=== PATIENT | male | born 1965 | race African-American/Black ===

== ENCOUNTER 2021-01-07 20:14 | Inpatient (IN) | payer OTHER ==
[2021-01-07 21:13] VITALS: BMI 26.6
[2021-01-07] MEDS ORDERED: MAGNESIUM CITRATE 300 ML BOTTLE PO PRN (22:18)
[2021-01-07] MEDS ORDERED: ACETAMINOPHEN 325 MG TABLET (FP) PO PRN (22:18)
[2021-01-07] MEDS ORDERED: LOPERAMIDE HCL 2 MG CAPSULE PO PRN (22:18)
[2021-01-07] MEDS ORDERED: P-EPHED 60MG/TRIPROLIDI 2.5MG TABLET PO PRN (22:18)
[2021-01-07] MEDS ORDERED: guaiFENesin 200 MG/10 ML 10 ML UNIT-DOSE CUPS PO PRN (22:18)
[2021-01-07] MEDS ORDERED: MAGNESIUM HYDROX 2400MG/30ML ORAL SUSPENSION 30 ML CUP PO PRN (22:18)
[2021-01-07] MEDS ORDERED: IBUPROFEN 400 MG TABLET (FP) PO PRN (22:18)
[2021-01-07] MEDS ORDERED: MAG HYDROX/AL HYDROX/SIMETH 30 ML UNIT-DOSE CUP PO PRN (22:18)
[2021-01-08] MEDS ORDERED: TUBERCULIN PPD 5 TU/0.1ML VIAL ID ONE (02:06)
[2021-01-08] MEDS: MELATONIN 5 MG TABLETS PO SCH ×2 (02:15→21:14)
[2021-01-08] MEDS: PRENATAL VITAMINS W/ FOLIC ACID TABLET (FP) PO SCH (10:29)
[2021-01-08 11:53] LABS: HEMATOCRIT 39.5 % (35.4-49); HEMOGLOBIN 13.4 GM/dL (11.7-16.9); MCH 30.1 pg (25.7-33.7); MEAN CELL VOLUME 88.5 fl (80-96); MEAN PLT VOLUME 8.2 fl (7.5-11.1); PLATELET COUNT 193 10^3/uL (134-434); RBC 4.47 M/mm3 (4.00-5.60); RDW 15.6 % (11.9-15.9); WHITE BLOOD COUNT 7.1 K/mm3 (4.0-10.0)
[2021-01-08] MEDS ORDERED: FLU VACC QS2021-22(6MOS UP)/PF 60 MCG/0.5 ML SYRINGE IM ONE (12:00)
[2021-01-08 12:37] LABS: BLOOD UREA NITROGEN 13.4 mg/dL (7-18)
[2021-01-08 12:41] LABS: CREATININE 0.9 mg/dL (0.55-1.3)
[2021-01-08 12:42] LABS: BILIRUBIN,TOTAL 0.5 mg/dL (0.2-1); TOT PROT 6.2 g/dl (6.4-8.2)
[2021-01-08] MEDS: THIAMINE HCL 100 MG TABLET (FP) PO SCH (21:14)
[2021-01-08 22:51] LABS: PH,URINE 7.5 (5.0-8.0); URINE APPEARANCE CLEAR; URINE BILIRUBIN NEGATIVE (NEGATIVE); URINE COLOR YELLOW; URINE GLUCOSE (UA) NEGATIVE (NEGATIVE); URINE KETONE NEGATIVE (NEGATIVE); URINE LEUK ESTERASE NEGATIVE (NEGATIVE); URINE NITRITE NEGATIVE (NEGATIVE); URINE PROTEIN NEGATIVE (NEGATIVE)
[2021-01-09] MEDS: PRENATAL VITAMINS W/ FOLIC ACID TABLET (FP) PO SCH (10:28)
[2021-01-09] MEDS: TOLNAFTATE 1% CREAM 15 GM TUBE TP SCH ×2 (10:28→22:36)
[2021-01-09] MEDS ORDERED: CYCLOBENZAPRINE HCL 10 MG TABLET (FP) PO PRN (12:17)
[2021-01-09] MEDS: HYDROCHLOROTHIAZIDE 12.5 MG CAPSULE (FP) PO SCH (13:50)
[2021-01-09] MEDS: amLODIPine BESYLATE 5 MG TABLET (FP) PO SCH (13:50)
[2021-01-09] MEDS: LISINOPRIL 10 MG TABLET PO SCH (13:51)
[2021-01-09] MEDS: MELATONIN 5 MG TABLETS PO SCH (22:35)
[2021-01-09] MEDS: THIAMINE HCL 100 MG TABLET (FP) PO SCH (22:36)
[2021-01-10] MEDS: PRENATAL VITAMINS W/ FOLIC ACID TABLET (FP) PO SCH (10:49)
[2021-01-10] MEDS: HYDROCHLOROTHIAZIDE 12.5 MG CAPSULE (FP) PO SCH (10:50)
[2021-01-10] MEDS: LISINOPRIL 10 MG TABLET PO SCH (10:51)
[2021-01-10] MEDS: amLODIPine BESYLATE 5 MG TABLET (FP) PO SCH (10:51)
[2021-01-10] MEDS: TOLNAFTATE 1% CREAM 15 GM TUBE TP SCH ×2 (10:52→22:00)
[2021-01-10] MEDS: THIAMINE HCL 100 MG TABLET (FP) PO SCH (22:00)
[2021-01-10] MEDS: MELATONIN 5 MG TABLETS PO SCH (22:00)
[2021-01-11] MEDS: PRENATAL VITAMINS W/ FOLIC ACID TABLET (FP) PO SCH (10:15)
[2021-01-11] MEDS: HYDROCHLOROTHIAZIDE 12.5 MG CAPSULE (FP) PO SCH (10:15)
[2021-01-11] MEDS: amLODIPine BESYLATE 5 MG TABLET (FP) PO SCH (10:15)
[2021-01-11] MEDS: LISINOPRIL 10 MG TABLET PO SCH (10:15)
[2021-01-11] MEDS: TOLNAFTATE 1% CREAM 15 GM TUBE TP SCH ×2 (10:15→23:04)
[2021-01-11] MEDS: THIAMINE HCL 100 MG TABLET (FP) PO SCH (23:04)
[2021-01-11] MEDS: MELATONIN 5 MG TABLETS PO SCH (23:04)
[2021-01-12] MEDS: HYDROCHLOROTHIAZIDE 12.5 MG CAPSULE (FP) PO SCH (12:09)
[2021-01-12] MEDS: amLODIPine BESYLATE 5 MG TABLET (FP) PO SCH (12:09)
[2021-01-12] MEDS: PRENATAL VITAMINS W/ FOLIC ACID TABLET (FP) PO SCH (12:09)
[2021-01-12] MEDS: TOLNAFTATE 1% CREAM 15 GM TUBE TP SCH ×2 (12:09→21:54)
[2021-01-12] MEDS: LISINOPRIL 10 MG TABLET PO SCH (12:09)
[2021-01-12] MEDS: MELATONIN 5 MG TABLETS PO SCH (21:54)
[2021-01-12] MEDS: THIAMINE HCL 100 MG TABLET (FP) PO SCH (21:54)
[2021-01-13] MEDS: LISINOPRIL 10 MG TABLET PO SCH (09:55)
[2021-01-13] MEDS: HYDROCHLOROTHIAZIDE 12.5 MG CAPSULE (FP) PO SCH (09:55)
[2021-01-13] MEDS: PRENATAL VITAMINS W/ FOLIC ACID TABLET (FP) PO SCH (09:55)
[2021-01-13] MEDS: amLODIPine BESYLATE 5 MG TABLET (FP) PO SCH (09:55)
[2021-01-13] MEDS: TOLNAFTATE 1% CREAM 15 GM TUBE TP SCH (09:56)
[2021-01-13] MEDS ORDERED: TOLNAFTATE 1% POWDER 45 GM POW TP SCH (11:00)
[2021-01-13 16:08] LABS: SARS-CoV-2 NAA Not Detected (Not Detected)
[2021-01-13] MEDS: THIAMINE HCL 100 MG TABLET (FP) PO SCH (21:06)
[2021-01-13] MEDS: MELATONIN 5 MG TABLETS PO SCH (21:06)
[2021-01-13] MEDS: TOLNAFTATE 1% POWDER 45 GM POW TP SCH (22:30)
[2021-01-14] MEDS: HYDROCHLOROTHIAZIDE 12.5 MG CAPSULE (FP) PO SCH (09:47)
[2021-01-14] MEDS: amLODIPine BESYLATE 5 MG TABLET (FP) PO SCH (09:47)
[2021-01-14] MEDS: LISINOPRIL 10 MG TABLET PO SCH (09:48)
[2021-01-14] MEDS: PRENATAL VITAMINS W/ FOLIC ACID TABLET (FP) PO SCH (09:48)
[2021-01-14] MEDS: MELATONIN 5 MG TABLETS PO SCH (23:08)
[2021-01-14] MEDS: TOLNAFTATE 1% CREAM 15 GM TUBE TP SCH (23:08)
[2021-01-14] MEDS: THIAMINE HCL 100 MG TABLET (FP) PO SCH (23:10)
[2021-01-15] MEDS: TOLNAFTATE 1% POWDER 45 GM POW TP SCH (02:04)
[2021-01-15] MEDS: PRENATAL VITAMINS W/ FOLIC ACID TABLET (FP) PO SCH (10:21)
[2021-01-15] MEDS: amLODIPine BESYLATE 5 MG TABLET (FP) PO SCH (10:22)
[2021-01-15] MEDS: LISINOPRIL 10 MG TABLET PO SCH (10:22)
[2021-01-15] MEDS: TOLNAFTATE 1% CREAM 15 GM TUBE TP SCH ×2 (10:22→21:54)
[2021-01-15] MEDS: HYDROCHLOROTHIAZIDE 12.5 MG CAPSULE (FP) PO SCH (10:22)
[2021-01-15] MEDS: MELATONIN 5 MG TABLETS PO SCH (21:53)
[2021-01-15] MEDS: THIAMINE HCL 100 MG TABLET (FP) PO SCH (21:54)
[2021-01-16] MEDS: PRENATAL VITAMINS W/ FOLIC ACID TABLET (FP) PO SCH (09:34)
[2021-01-16] MEDS: amLODIPine BESYLATE 5 MG TABLET (FP) PO SCH (09:34)
[2021-01-16] MEDS: LISINOPRIL 10 MG TABLET PO SCH (09:34)
[2021-01-16] MEDS: TOLNAFTATE 1% CREAM 15 GM TUBE TP SCH ×2 (09:34→22:41)
[2021-01-16] MEDS: HYDROCHLOROTHIAZIDE 12.5 MG CAPSULE (FP) PO SCH (09:34)
[2021-01-16] MEDS: MELATONIN 5 MG TABLETS PO SCH (22:41)
[2021-01-16] MEDS: THIAMINE HCL 100 MG TABLET (FP) PO SCH (22:41)
[2021-01-17] MEDS: PRENATAL VITAMINS W/ FOLIC ACID TABLET (FP) PO SCH (10:29)
[2021-01-17] MEDS: LISINOPRIL 10 MG TABLET PO SCH (10:29)
[2021-01-17] MEDS: amLODIPine BESYLATE 5 MG TABLET (FP) PO SCH (10:29)
[2021-01-17] MEDS: HYDROCHLOROTHIAZIDE 12.5 MG CAPSULE (FP) PO SCH (10:29)
[2021-01-17] MEDS: TOLNAFTATE 1% CREAM 15 GM TUBE TP SCH ×2 (10:41→22:32)
[2021-01-17] MEDS: MELATONIN 5 MG TABLETS PO SCH (22:32)
[2021-01-17] MEDS: THIAMINE HCL 100 MG TABLET (FP) PO SCH (22:33)
[2021-01-18] MEDS: amLODIPine BESYLATE 5 MG TABLET (FP) PO SCH (09:43)
[2021-01-18] MEDS: HYDROCHLOROTHIAZIDE 12.5 MG CAPSULE (FP) PO SCH (09:43)
[2021-01-18] MEDS: LISINOPRIL 10 MG TABLET PO SCH (09:43)
[2021-01-18] MEDS: PRENATAL VITAMINS W/ FOLIC ACID TABLET (FP) PO SCH (09:43)
[2021-01-18] MEDS: TOLNAFTATE 1% CREAM 15 GM TUBE TP SCH ×2 (09:44→22:11)
[2021-01-18] MEDS: THIAMINE HCL 100 MG TABLET (FP) PO SCH (22:11)
[2021-01-18] MEDS: MELATONIN 5 MG TABLETS PO SCH (22:11)
[2021-01-19] MEDS: HYDROCHLOROTHIAZIDE 12.5 MG CAPSULE (FP) PO SCH (09:26)
[2021-01-19] MEDS: amLODIPine BESYLATE 5 MG TABLET (FP) PO SCH (09:26)
[2021-01-19] MEDS: LISINOPRIL 10 MG TABLET PO SCH (09:26)
[2021-01-19] MEDS: PRENATAL VITAMINS W/ FOLIC ACID TABLET (FP) PO SCH (09:26)
[2021-01-19] MEDS: TOLNAFTATE 1% CREAM 15 GM TUBE TP SCH ×2 (09:27→21:47)
[2021-01-19] MEDS: MELATONIN 5 MG TABLETS PO SCH (21:47)
[2021-01-19] MEDS: THIAMINE HCL 100 MG TABLET (FP) PO SCH (21:48)
[2021-01-20] MEDS: HYDROCHLOROTHIAZIDE 12.5 MG CAPSULE (FP) PO SCH (09:32)
[2021-01-20] MEDS: PRENATAL VITAMINS W/ FOLIC ACID TABLET (FP) PO SCH (09:32)
[2021-01-20] MEDS: amLODIPine BESYLATE 5 MG TABLET (FP) PO SCH (09:33)
[2021-01-20] MEDS: TOLNAFTATE 1% CREAM 15 GM TUBE TP SCH ×2 (09:33→22:00)
[2021-01-20] MEDS: LISINOPRIL 10 MG TABLET PO SCH (09:33)
[2021-01-20] MEDS: MELATONIN 5 MG TABLETS PO SCH (22:00)
[2021-01-20] MEDS: THIAMINE HCL 100 MG TABLET (FP) PO SCH (22:00)
[2021-01-21 06:51] VITALS: TEMP 98.6
[2021-01-21 09:23] VITALS: BP 143/63; PULSE 53
[2021-01-21] MEDS: PRENATAL VITAMINS W/ FOLIC ACID TABLET (FP) PO SCH (09:30)
[2021-01-21] MEDS: LISINOPRIL 10 MG TABLET PO SCH (09:30)
[2021-01-21] MEDS: amLODIPine BESYLATE 5 MG TABLET (FP) PO SCH (09:30)
[2021-01-21] MEDS: HYDROCHLOROTHIAZIDE 12.5 MG CAPSULE (FP) PO SCH (09:30)
== END 2021-01-21 09:42 | disposition home or self-care (01) | DRG 772 ==
LOC: YASAS 20:14 → Y3W 01-08 01:31
PROVIDERS: ADMIT Allergy & Immunology; ATTEND Allergy & Immunology
PROC: HZ42ZZZ Group Counseling for Substance Abuse Treatment, Cognitive-Behavioral (ICD-10-PCS; principal; 2021-01-08)
DX: F10.20 Alcohol dependence, uncomplicated (principal); F14.20 Cocaine dependence, uncomplicated; F12.20 Cannabis dependence, uncomplicated; F17.210 Nicotine dependence, cigarettes, uncomplicated; F20.9 Schizophrenia, unspecified; F31.9 Bipolar disorder, unspecified; I10 Essential (primary) hypertension; Z56.0 Unemployment, unspecified; Z59.02 Unsheltered homelessness
CPT/HCPCS: 36415; 80053; 81003; 85027; 86769; 86780; 90686; C9803; G0008; U0003; U0005

== ENCOUNTER 2021-06-18 09:39 | Inpatient (IN) | payer OTHER ==
[2021-06-18] MEDS ORDERED: MAGNESIUM CITRATE 300 ML BOTTLE PO PRN (10:14)
[2021-06-18] MEDS ORDERED: NICOTINE 10 MG CARTRIDGE (INHALER) IH PRN (10:14)
[2021-06-18] MEDS ORDERED: LOPERAMIDE HCL 2 MG CAPSULE PO PRN (10:14)
[2021-06-18] MEDS ORDERED: MAG HYDROX/AL HYDROX/SIMETH 30 ML UNIT-DOSE CUP PO PRN (10:14)
[2021-06-18] MEDS ORDERED: P-EPHED 60MG/TRIPROLIDI 2.5MG TABLET PO PRN (10:14)
[2021-06-18] MEDS ORDERED: guaiFENesin 200 MG/10 ML 10 ML UNIT-DOSE CUPS PO PRN (10:14)
[2021-06-18] MEDS ORDERED: IBUPROFEN 400 MG TABLET (FP) PO PRN (10:14)
[2021-06-18] MEDS ORDERED: MAGNESIUM HYDROX 2400MG/30ML ORAL SUSPENSION 30 ML CUP PO PRN (10:14)
[2021-06-18 10:43] VITALS: BMI 27.1
[2021-06-18] MEDS: NICOTINE 7 MG/24 HOURS TOPICAL PATCH TD SCH (13:27)
[2021-06-18] MEDS: PRENATAL VITAMINS W/ FOLIC ACID TABLET (FP) PO SCH (13:27)
[2021-06-18] MEDS: hydrOXYzine PAMOATE 25 MG CAPSULE (FP) PO SCH ×3 (14:29→23:24)
[2021-06-18 18:09] LABS: HEMATOCRIT 40.5 % (35.4-49); HEMOGLOBIN 13.7 GM/dL (11.7-16.9); MCH 29.8 pg (25.7-33.7); MCHC 33.8 g/dl (32.0-35.9); MEAN CELL VOLUME 88.3 fl (80-96); MEAN PLT VOLUME 8.6 fl (7.5-11.1); PLATELET COUNT 199 10^3/uL (134-434); RBC 4.59 M/mm3 (4.00-5.60); RDW 14.4 % (11.9-15.9)
[2021-06-18 18:16] LABS: CALCIUM 9.1 mg/dL (8.5-10.1)
[2021-06-18 18:17] LABS: ALBUMIN 4.1 g/dl (3.4-5.0); BLOOD UREA NITROGEN 20.7 mg/dL (7-18)
[2021-06-18 18:20] LABS: CREATININE 1.2 mg/dL (0.55-1.3)
[2021-06-18 18:21] LABS: BILIRUBIN,TOTAL 0.8 mg/dL (0.2-1); TOT PROT 7.6 g/dl (6.4-8.2)
[2021-06-18 18:37] LABS: SYPHILIS W/ RPR CONF NON-REACTIVE (NONREACTIVE)
[2021-06-18] MEDS: THIAMINE HCL 100 MG TABLET (FP) PO SCH (21:40)
[2021-06-18] MEDS: MELATONIN 5 MG TABLETS PO SCH (21:40)
[2021-06-19] MEDS: hydrOXYzine PAMOATE 25 MG CAPSULE (FP) PO SCH ×2 (06:24→10:50)
[2021-06-19] MEDS: amLODIPine BESYLATE 5 MG TABLET (FP) PO SCH (10:49)
[2021-06-19] MEDS: HYDROCHLOROTHIAZIDE 12.5 MG CAPSULE (FP) PO SCH (10:49)
[2021-06-19] MEDS: NICOTINE 7 MG/24 HOURS TOPICAL PATCH TD SCH (10:49)
[2021-06-19] MEDS: LISINOPRIL 10 MG TABLET PO SCH (10:49)
[2021-06-19] MEDS: PRENATAL VITAMINS W/ FOLIC ACID TABLET (FP) PO SCH (10:49)
[2021-06-19] MEDS ORDERED: hydrOXYzine PAMOATE 25 MG CAPSULE (FP) PO PRN (11:36)
[2021-06-19 15:21] LABS: URINE APPEARANCE CLEAR; URINE BILIRUBIN NEGATIVE (NEGATIVE); URINE COLOR YELLOW; URINE GLUCOSE (UA) NEGATIVE (NEGATIVE); URINE KETONE NEGATIVE (NEGATIVE); URINE LEUK ESTERASE NEGATIVE (NEGATIVE); URINE NITRITE NEGATIVE (NEGATIVE); URINE PROTEIN NEGATIVE (NEGATIVE); URINE UROBILINOGEN 0.2 mg/dL (0.2-1.0)
[2021-06-19] MEDS: MELATONIN 5 MG TABLETS PO SCH (23:04)
[2021-06-19] MEDS: THIAMINE HCL 100 MG TABLET (FP) PO SCH (23:05)
[2021-06-20 10:07] LABS: SARS-CoV-2 NAA Not Detected (Not Detected)
[2021-06-20] MEDS: PRENATAL VITAMINS W/ FOLIC ACID TABLET (FP) PO SCH (11:03)
[2021-06-20] MEDS: NICOTINE 7 MG/24 HOURS TOPICAL PATCH TD SCH (11:03)
[2021-06-20] MEDS: HYDROCHLOROTHIAZIDE 12.5 MG CAPSULE (FP) PO SCH (11:03)
[2021-06-20] MEDS: LISINOPRIL 10 MG TABLET PO SCH (11:03)
[2021-06-20] MEDS: amLODIPine BESYLATE 5 MG TABLET (FP) PO SCH (11:03)
[2021-06-20] MEDS: MELATONIN 5 MG TABLETS PO SCH (22:09)
[2021-06-20] MEDS: THIAMINE HCL 100 MG TABLET (FP) PO SCH (22:09)
[2021-06-21] MEDS: ACETAMINOPHEN 325 MG TABLET (FP) PO PRN (07:11)
[2021-06-21] MEDS: HYDROCHLOROTHIAZIDE 12.5 MG CAPSULE (FP) PO SCH (10:18)
[2021-06-21] MEDS: PRENATAL VITAMINS W/ FOLIC ACID TABLET (FP) PO SCH (10:18)
[2021-06-21] MEDS: amLODIPine BESYLATE 5 MG TABLET (FP) PO SCH (10:18)
[2021-06-21] MEDS: NICOTINE 7 MG/24 HOURS TOPICAL PATCH TD SCH (10:18)
[2021-06-21] MEDS: LISINOPRIL 10 MG TABLET PO SCH (10:18)
[2021-06-21] MEDS: THIAMINE HCL 100 MG TABLET (FP) PO SCH (22:59)
[2021-06-21] MEDS: MELATONIN 5 MG TABLETS PO SCH (22:59)
[2021-06-22] MEDS: amLODIPine BESYLATE 5 MG TABLET (FP) PO SCH (06:15)
[2021-06-22] MEDS: LISINOPRIL 10 MG TABLET PO SCH (06:15)
[2021-06-22] MEDS: PRENATAL VITAMINS W/ FOLIC ACID TABLET (FP) PO SCH (11:09)
[2021-06-22] MEDS: ACETAMINOPHEN 325 MG TABLET (FP) PO PRN (11:10)
[2021-06-22] MEDS: NICOTINE 7 MG/24 HOURS TOPICAL PATCH TD SCH (11:10)
[2021-06-22] MEDS: HYDROCHLOROTHIAZIDE 12.5 MG CAPSULE (FP) PO SCH (11:10)
[2021-06-22] MEDS: THIAMINE HCL 100 MG TABLET (FP) PO SCH (22:31)
[2021-06-22] MEDS: MELATONIN 5 MG TABLETS PO SCH (22:31)
[2021-06-23] MEDS: amLODIPine BESYLATE 5 MG TABLET (FP) PO SCH (06:48)
[2021-06-23] MEDS: LISINOPRIL 10 MG TABLET PO SCH (06:48)
[2021-06-23] MEDS: PRENATAL VITAMINS W/ FOLIC ACID TABLET (FP) PO SCH (10:45)
[2021-06-23] MEDS: HYDROCHLOROTHIAZIDE 12.5 MG CAPSULE (FP) PO SCH (10:45)
[2021-06-23] MEDS: NICOTINE 7 MG/24 HOURS TOPICAL PATCH TD SCH (10:46)
[2021-06-23] MEDS: MELATONIN 5 MG TABLETS PO SCH (21:32)
[2021-06-23] MEDS: THIAMINE HCL 100 MG TABLET (FP) PO SCH (21:32)
[2021-06-24] MEDS: ACETAMINOPHEN 325 MG TABLET (FP) PO PRN (05:46)
[2021-06-24] MEDS: amLODIPine BESYLATE 5 MG TABLET (FP) PO SCH (05:47)
[2021-06-24] MEDS: LISINOPRIL 10 MG TABLET PO SCH (05:47)
[2021-06-24] MEDS: NICOTINE 7 MG/24 HOURS TOPICAL PATCH TD SCH (10:50)
[2021-06-24] MEDS: HYDROCHLOROTHIAZIDE 12.5 MG CAPSULE (FP) PO SCH (10:50)
[2021-06-24] MEDS: PRENATAL VITAMINS W/ FOLIC ACID TABLET (FP) PO SCH (10:50)
[2021-06-24] MEDS ORDERED: MELATONIN 5 MG TABLETS PO PRN (15:17)
[2021-06-24] MEDS: THIAMINE HCL 100 MG TABLET (FP) PO SCH (21:48)
[2021-06-24] MEDS ORDERED: TOLNAFTATE 1% CREAM 15 GM TUBE TP SCH (22:00)
[2021-06-24] MEDS: TOLNAFTATE 1% CREAM 15 GM TUBE TP SCH (23:04)
[2021-06-25] MEDS: amLODIPine BESYLATE 5 MG TABLET (FP) PO SCH (06:14)
[2021-06-25] MEDS: LISINOPRIL 10 MG TABLET PO SCH (06:14)
[2021-06-25] MEDS: TOLNAFTATE 1% CREAM 15 GM TUBE TP SCH ×2 (10:40→21:19)
[2021-06-25] MEDS: PRENATAL VITAMINS W/ FOLIC ACID TABLET (FP) PO SCH (10:40)
[2021-06-25] MEDS: NICOTINE 7 MG/24 HOURS TOPICAL PATCH TD SCH (10:40)
[2021-06-25] MEDS: HYDROCHLOROTHIAZIDE 12.5 MG CAPSULE (FP) PO SCH (10:40)
[2021-06-25] MEDS: ACETAMINOPHEN 325 MG TABLET (FP) PO PRN (10:40)
[2021-06-25] MEDS: THIAMINE HCL 100 MG TABLET (FP) PO SCH (21:19)
[2021-06-26] MEDS: amLODIPine BESYLATE 5 MG TABLET (FP) PO SCH (06:45)
[2021-06-26] MEDS: ACETAMINOPHEN 325 MG TABLET (FP) PO PRN ×2 (06:45→10:36)
[2021-06-26] MEDS: LISINOPRIL 10 MG TABLET PO SCH (06:45)
[2021-06-26 07:12] VITALS: TEMP 98.8
[2021-06-26] MEDS: PRENATAL VITAMINS W/ FOLIC ACID TABLET (FP) PO SCH (10:36)
[2021-06-26] MEDS: TOLNAFTATE 1% CREAM 15 GM TUBE TP SCH ×2 (10:37→21:19)
[2021-06-26] MEDS: NICOTINE 7 MG/24 HOURS TOPICAL PATCH TD SCH (10:37)
[2021-06-26] MEDS: HYDROCHLOROTHIAZIDE 12.5 MG CAPSULE (FP) PO SCH (10:37)
[2021-06-26] MEDS: THIAMINE HCL 100 MG TABLET (FP) PO SCH (21:18)
[2021-06-27] MEDS: amLODIPine BESYLATE 5 MG TABLET (FP) PO SCH (06:35)
[2021-06-27] MEDS: LISINOPRIL 10 MG TABLET PO SCH (06:35)
[2021-06-27 07:09] VITALS: BP 124/73; PULSE 65
[2021-06-27] MEDS: PRENATAL VITAMINS W/ FOLIC ACID TABLET (FP) PO SCH (10:11)
[2021-06-27] MEDS: HYDROCHLOROTHIAZIDE 12.5 MG CAPSULE (FP) PO SCH (10:11)
[2021-06-27] MEDS: TOLNAFTATE 1% CREAM 15 GM TUBE TP SCH (10:12)
[2021-06-27] MEDS: NICOTINE 7 MG/24 HOURS TOPICAL PATCH TD SCH (10:12)
== END 2021-06-27 10:55 | disposition home or self-care (01) | DRG 772 ==
LOC: YASAS 09:39 → Y3W 12:36
PROVIDERS: ADMIT Allergy & Immunology; ATTEND Allergy & Immunology
PROC: HZ42ZZZ Group Counseling for Substance Abuse Treatment, Cognitive-Behavioral (ICD-10-PCS; principal; 2021-06-18)
DX: F10.20 Alcohol dependence, uncomplicated (principal); F14.20 Cocaine dependence, uncomplicated; F12.20 Cannabis dependence, uncomplicated; F17.210 Nicotine dependence, cigarettes, uncomplicated; F31.9 Bipolar disorder, unspecified; F20.9 Schizophrenia, unspecified; F19.24 Other psychoactive substance dependence with psychoactive substance-induced mood disorder; I10 Essential (primary) hypertension; B35.1 Tinea unguium; Z56.0 Unemployment, unspecified; Z59.02 Unsheltered homelessness
CPT/HCPCS: 36415; 80053; 81003; 85027; 86780; 86803; C9803-CS; U0003; U0005

== ENCOUNTER 2021-08-29 12:19 | Inpatient (IN) | payer OTHER ==
[2021-08-29 12:51] VITALS: BMI 25.9
[2021-08-29] MEDS ORDERED: MAGNESIUM HYDROX 2400MG/30ML ORAL SUSPENSION 30 ML CUP PO PRN (14:37)
[2021-08-29] MEDS ORDERED: MAG HYDROX/AL HYDROX/SIMETH 30 ML UNIT-DOSE CUP PO PRN (14:37)
[2021-08-29] MEDS ORDERED: guaiFENesin 200 MG/10 ML 10 ML UNIT-DOSE CUPS PO PRN (14:37)
[2021-08-29] MEDS ORDERED: IBUPROFEN 400 MG TABLET (FP) PO PRN (14:37)
[2021-08-29] MEDS ORDERED: LOPERAMIDE HCL 2 MG CAPSULE PO PRN (14:37)
[2021-08-29] MEDS ORDERED: NICOTINE 10 MG CARTRIDGE (INHALER) IH PRN (14:37)
[2021-08-29] MEDS ORDERED: MAGNESIUM CITRATE 300 ML BOTTLE PO PRN (14:37)
[2021-08-29] MEDS ORDERED: P-EPHED 60MG/TRIPROLIDI 2.5MG TABLET PO PRN (14:37)
[2021-08-29] MEDS: ACETAMINOPHEN 325 MG TABLET (FP) PO PRN (19:19)
[2021-08-29] MEDS: hydrOXYzine PAMOATE 25 MG CAPSULE (FP) PO SCH ×2 (19:19→23:25)
[2021-08-29] MEDS: THIAMINE HCL 100 MG TABLET (FP) PO SCH (23:25)
[2021-08-29] MEDS: MELATONIN 5 MG TABLETS PO SCH (23:25)
[2021-08-30] MEDS: hydrOXYzine PAMOATE 25 MG CAPSULE (FP) PO SCH ×5 (06:01→21:29)
[2021-08-30 08:01] LABS: PH,URINE 6.5 (5.0-8.0); URINE APPEARANCE CLEAR; URINE BILIRUBIN NEGATIVE (NEGATIVE); URINE COLOR YELLOW; URINE GLUCOSE (UA) NEGATIVE (NEGATIVE); URINE KETONE NEGATIVE (NEGATIVE); URINE LEUK ESTERASE NEGATIVE (NEGATIVE); URINE NITRITE NEGATIVE (NEGATIVE); URINE PROTEIN NEGATIVE (NEGATIVE)
[2021-08-30] MEDS: NICOTINE 7 MG/24 HOURS TOPICAL PATCH TD SCH (09:54)
[2021-08-30] MEDS: PRENATAL VITAMINS W/ FOLIC ACID TABLET (FP) PO SCH (09:54)
[2021-08-30] MEDS: HYDROCHLOROTHIAZIDE 12.5 MG CAPSULE (FP) PO SCH (09:54)
[2021-08-30] MEDS: amLODIPine BESYLATE 5 MG TABLET (FP) PO SCH (09:54)
[2021-08-30] MEDS: LISINOPRIL 10 MG TABLET PO SCH (09:54)
[2021-08-30] MEDS: ACETAMINOPHEN 325 MG TABLET (FP) PO PRN (09:55)
[2021-08-30 10:39] LABS: HEMATOCRIT 40.2 % (35.4-49); HEMOGLOBIN 13.6 GM/dL (11.7-16.9); MCH 29.7 pg (25.7-33.7); MCHC 33.9 g/dl (32.0-35.9); MEAN CELL VOLUME 87.6 fl (80-96); MEAN PLT VOLUME 8.5 fl (7.5-11.1); PLATELET COUNT 167 10^3/uL (134-434); RBC 4.59 M/mm3 (4.00-5.60); RDW 14.1 % (11.9-15.9); WHITE BLOOD COUNT 5.9 K/mm3 (4.0-10.0)
[2021-08-30 10:49] LABS: ALBUMIN 3.4 g/dl (3.4-5.0); BLOOD UREA NITROGEN 10.3 mg/dL (7-18); CALCIUM 8.5 mg/dL (8.5-10.1)
[2021-08-30 10:52] LABS: CREATININE 0.9 mg/dL (0.55-1.3)
[2021-08-30 10:54] LABS: BILIRUBIN,TOTAL 0.6 mg/dL (0.2-1); TOT PROT 6.4 g/dl (6.4-8.2)
[2021-08-30] MEDS: THIAMINE HCL 100 MG TABLET (FP) PO SCH (21:29)
[2021-08-30] MEDS: MELATONIN 5 MG TABLETS PO SCH (21:29)
[2021-08-31] MEDS: hydrOXYzine PAMOATE 25 MG CAPSULE (FP) PO SCH ×5 (06:36→21:36)
[2021-08-31] MEDS: METHOCARBAMOL 500 MG TABLET PO PRN (10:08)
[2021-08-31] MEDS: PRENATAL VITAMINS W/ FOLIC ACID TABLET (FP) PO SCH (10:08)
[2021-08-31] MEDS: LISINOPRIL 10 MG TABLET PO SCH (10:08)
[2021-08-31] MEDS: NICOTINE 7 MG/24 HOURS TOPICAL PATCH TD SCH (10:09)
[2021-08-31] MEDS: amLODIPine BESYLATE 5 MG TABLET (FP) PO SCH (10:09)
[2021-08-31] MEDS: HYDROCHLOROTHIAZIDE 12.5 MG CAPSULE (FP) PO SCH (10:09)
[2021-08-31] MEDS: MELATONIN 5 MG TABLETS PO SCH (21:36)
[2021-08-31] MEDS: THIAMINE HCL 100 MG TABLET (FP) PO SCH (21:36)
[2021-09-01] MEDS: hydrOXYzine PAMOATE 25 MG CAPSULE (FP) PO SCH ×5 (07:13→21:54)
[2021-09-01] MEDS: HYDROCHLOROTHIAZIDE 12.5 MG CAPSULE (FP) PO SCH (09:53)
[2021-09-01] MEDS: amLODIPine BESYLATE 5 MG TABLET (FP) PO SCH (09:53)
[2021-09-01] MEDS: NICOTINE 7 MG/24 HOURS TOPICAL PATCH TD SCH (09:53)
[2021-09-01] MEDS: PRENATAL VITAMINS W/ FOLIC ACID TABLET (FP) PO SCH (09:53)
[2021-09-01] MEDS: LISINOPRIL 10 MG TABLET PO SCH (09:53)
[2021-09-01] MEDS: METHOCARBAMOL 500 MG TABLET PO PRN (09:53)
[2021-09-01] MEDS: THIAMINE HCL 100 MG TABLET (FP) PO SCH (21:54)
[2021-09-01] MEDS: MELATONIN 5 MG TABLETS PO SCH (21:54)
[2021-09-02] MEDS: hydrOXYzine PAMOATE 25 MG CAPSULE (FP) PO SCH ×3 (06:36→13:20)
[2021-09-02] MEDS: amLODIPine BESYLATE 5 MG TABLET (FP) PO SCH (09:52)
[2021-09-02] MEDS: HYDROCHLOROTHIAZIDE 12.5 MG CAPSULE (FP) PO SCH (09:52)
[2021-09-02] MEDS: NICOTINE 7 MG/24 HOURS TOPICAL PATCH TD SCH (09:52)
[2021-09-02] MEDS: PRENATAL VITAMINS W/ FOLIC ACID TABLET (FP) PO SCH (09:52)
[2021-09-02] MEDS: LISINOPRIL 10 MG TABLET PO SCH (09:52)
[2021-09-02] MEDS: METHOCARBAMOL 500 MG TABLET PO PRN (09:53)
[2021-09-02] MEDS ORDERED: hydrOXYzine PAMOATE 25 MG CAPSULE (FP) PO PRN (14:25)
[2021-09-02] MEDS: THIAMINE HCL 100 MG TABLET (FP) PO SCH (21:33)
[2021-09-02] MEDS: MELATONIN 5 MG TABLETS PO SCH (21:33)
[2021-09-03] MEDS: ACETAMINOPHEN 325 MG TABLET (FP) PO PRN (06:48)
[2021-09-03] MEDS: METHOCARBAMOL 500 MG TABLET PO PRN (09:59)
[2021-09-03] MEDS: PRENATAL VITAMINS W/ FOLIC ACID TABLET (FP) PO SCH (09:59)
[2021-09-03] MEDS: HYDROCHLOROTHIAZIDE 12.5 MG CAPSULE (FP) PO SCH (09:59)
[2021-09-03] MEDS: amLODIPine BESYLATE 5 MG TABLET (FP) PO SCH (09:59)
[2021-09-03] MEDS: LISINOPRIL 10 MG TABLET PO SCH (09:59)
[2021-09-03] MEDS: NICOTINE 7 MG/24 HOURS TOPICAL PATCH TD SCH (10:00)
[2021-09-03 13:50] LABS: SYPHILIS W/ RPR CONF NON-REACTIVE (NONREACTIVE)
[2021-09-03] MEDS: MELATONIN 5 MG TABLETS PO SCH (21:50)
[2021-09-03] MEDS: THIAMINE HCL 100 MG TABLET (FP) PO SCH (21:50)
[2021-09-04] MEDS: PRENATAL VITAMINS W/ FOLIC ACID TABLET (FP) PO SCH (10:39)
[2021-09-04] MEDS: HYDROCHLOROTHIAZIDE 12.5 MG CAPSULE (FP) PO SCH (10:39)
[2021-09-04] MEDS: amLODIPine BESYLATE 5 MG TABLET (FP) PO SCH (10:39)
[2021-09-04] MEDS: LISINOPRIL 10 MG TABLET PO SCH (10:39)
[2021-09-04] MEDS: ACETAMINOPHEN 325 MG TABLET (FP) PO PRN (10:40)
[2021-09-04] MEDS: METHOCARBAMOL 500 MG TABLET PO PRN (10:40)
[2021-09-04] MEDS: NICOTINE 7 MG/24 HOURS TOPICAL PATCH TD SCH (10:40)
[2021-09-04] MEDS: MELATONIN 5 MG TABLETS PO SCH (21:20)
[2021-09-04] MEDS: THIAMINE HCL 100 MG TABLET (FP) PO SCH (21:20)
[2021-09-05 07:04] VITALS: BP 140/76; PULSE 51; TEMP 98
[2021-09-05] MEDS: HYDROCHLOROTHIAZIDE 12.5 MG CAPSULE (FP) PO SCH (09:57)
[2021-09-05] MEDS: LISINOPRIL 10 MG TABLET PO SCH (09:57)
[2021-09-05] MEDS: NICOTINE 7 MG/24 HOURS TOPICAL PATCH TD SCH (09:57)
[2021-09-05] MEDS: amLODIPine BESYLATE 5 MG TABLET (FP) PO SCH (09:57)
[2021-09-05] MEDS: PRENATAL VITAMINS W/ FOLIC ACID TABLET (FP) PO SCH (09:57)
[2021-09-05] MEDS: ACETAMINOPHEN 325 MG TABLET (FP) PO PRN (09:58)
[2021-09-05] MEDS: METHOCARBAMOL 500 MG TABLET PO PRN (09:59)
== END 2021-09-05 13:05 | disposition left against medical advice (07) | DRG 770 ==
LOC: YASAS 12:19 → Y3W 17:57
PROVIDERS: ADMIT Allergy & Immunology; ATTEND Psychiatry & Neurology Pain Medicine
PROC: HZ42ZZZ Group Counseling for Substance Abuse Treatment, Cognitive-Behavioral (ICD-10-PCS; principal; 2021-08-29)
DX: F10.20 Alcohol dependence, uncomplicated (principal); F14.10 Cocaine abuse, uncomplicated; F12.20 Cannabis dependence, uncomplicated; F17.210 Nicotine dependence, cigarettes, uncomplicated; F20.9 Schizophrenia, unspecified; F31.9 Bipolar disorder, unspecified; I10 Essential (primary) hypertension; D57.1 Sickle-cell disease without crisis; Z59.00 Homelessness unspecified
CPT/HCPCS: 36415; 80053; 81003; 85027; 86780; 86803; C9803-CS; U0003; U0005

== ENCOUNTER 2021-11-15 11:02 | Inpatient (IN) | payer OTHER ==
[2021-11-15 12:21] VITALS: BMI 27.1
[2021-11-15] MEDS ORDERED: NICOTINE 10 MG CARTRIDGE (INHALER) IH PRN (13:07)
[2021-11-15] MEDS ORDERED: P-EPHED 60MG/TRIPROLIDI 2.5MG TABLET PO PRN (13:07)
[2021-11-15] MEDS ORDERED: MAGNESIUM HYDROX 2400MG/30ML ORAL SUSPENSION 30 ML CUP PO PRN (13:07)
[2021-11-15] MEDS ORDERED: LOPERAMIDE HCL 2 MG CAPSULE PO PRN (13:07)
[2021-11-15] MEDS ORDERED: IBUPROFEN 400 MG TABLET (FP) PO PRN (13:07)
[2021-11-15] MEDS ORDERED: guaiFENesin 200 MG/10 ML 10 ML UNIT-DOSE CUPS PO PRN (13:07)
[2021-11-15] MEDS ORDERED: MAGNESIUM CITRATE 300 ML BOTTLE PO PRN (13:07)
[2021-11-15] MEDS ORDERED: MAG HYDROX/AL HYDROX/SIMETH 30 ML UNIT-DOSE CUP PO PRN (13:07)
[2021-11-15] MEDS: BACLOFEN 10 MG TABLET (FP) PO SCH ×2 (17:52→23:04)
[2021-11-15] MEDS: LIDOCAINE 5% TOPICAL PATCH TP SCH (17:52)
[2021-11-15] MEDS: hydrOXYzine PAMOATE 25 MG CAPSULE (FP) PO SCH ×2 (17:53→23:04)
[2021-11-15] MEDS: amLODIPine BESYLATE 5 MG TABLET (FP) PO SCH (18:30)
[2021-11-15] MEDS: LISINOPRIL 10 MG TABLET PO SCH (18:30)
[2021-11-15] MEDS: LIDOCAINE PATCH REMOVAL MC SCH (23:03)
[2021-11-15] MEDS: THIAMINE HCL 100 MG TABLET (FP) PO SCH (23:04)
[2021-11-15] MEDS: MELATONIN 5 MG TABLETS PO SCH (23:04)
[2021-11-16] MEDS: hydrOXYzine PAMOATE 25 MG CAPSULE (FP) PO SCH ×5 (06:11→22:01)
[2021-11-16] MEDS: HYDROCHLOROTHIAZIDE 12.5 MG CAPSULE (FP) PO SCH (11:19)
[2021-11-16] MEDS: LIDOCAINE 5% TOPICAL PATCH TP SCH (11:22)
[2021-11-16] MEDS: NICOTINE 7 MG/24 HOURS TOPICAL PATCH TD SCH (11:22)
[2021-11-16] MEDS: amLODIPine BESYLATE 5 MG TABLET (FP) PO SCH (11:23)
[2021-11-16] MEDS: LISINOPRIL 10 MG TABLET PO SCH (11:23)
[2021-11-16] MEDS: PRENATAL VITAMINS W/ FOLIC ACID TABLET (FP) PO SCH (11:24)
[2021-11-16] MEDS: BACLOFEN 10 MG TABLET (FP) PO SCH ×2 (11:24→22:01)
[2021-11-16 12:28] LABS: PH,URINE 7.5 (5.0-8.0); URINE APPEARANCE CLEAR; URINE BILIRUBIN NEGATIVE (NEGATIVE); URINE COLOR YELLOW; URINE GLUCOSE (UA) NEGATIVE (NEGATIVE); URINE KETONE NEGATIVE (NEGATIVE); URINE LEUK ESTERASE NEGATIVE (NEGATIVE); URINE NITRITE NEGATIVE (NEGATIVE); URINE PROTEIN NEGATIVE (NEGATIVE)
[2021-11-16] MEDS ORDERED: PATIENT'S OWN MEDICATION (NON-FORMULARY) (Hydrochlorothiazide [Hydrochlorothiazide] 12.5 M PO SCH (13:06)
[2021-11-16 14:31] LABS: HEMATOCRIT 37.8 % (35.4-49); HEMOGLOBIN 13.2 GM/dL (11.7-16.9); MCH 30.6 pg (25.7-33.7); MCHC 34.8 g/dl (32.0-35.9); MEAN CELL VOLUME 87.9 fl (80-96); MEAN PLT VOLUME 8.3 fl (7.5-11.1); PLATELET COUNT 154 10^3/uL (134-434); RBC 4.31 M/mm3 (4.00-5.60); RDW 14.5 % (11.9-15.9); WHITE BLOOD COUNT 6.6 K/mm3 (4.0-10.0)
[2021-11-16 14:44] LABS: ALBUMIN 3.4 g/dl (3.4-5.0)
[2021-11-16 14:45] LABS: BLOOD UREA NITROGEN 7.6 mg/dL (7-18)
[2021-11-16 14:48] LABS: CREATININE 0.9 mg/dL (0.55-1.3)
[2021-11-16 14:49] LABS: BILIRUBIN,TOTAL 0.5 mg/dL (0.2-1); TOT PROT 6.4 g/dl (6.4-8.2)
[2021-11-16] MEDS: MELATONIN 5 MG TABLETS PO SCH (22:01)
[2021-11-16] MEDS: THIAMINE HCL 100 MG TABLET (FP) PO SCH (22:01)
[2021-11-16] MEDS: LIDOCAINE PATCH REMOVAL MC SCH (22:01)
[2021-11-17] MEDS: hydrOXYzine PAMOATE 25 MG CAPSULE (FP) PO SCH ×2 (07:18→11:52)
[2021-11-17] MEDS ORDERED: hydrOXYzine PAMOATE 25 MG CAPSULE (FP) PO PRN (10:05)
[2021-11-17] MEDS: BACLOFEN 10 MG TABLET (FP) PO SCH ×2 (10:19→21:51)
[2021-11-17] MEDS: amLODIPine BESYLATE 5 MG TABLET (FP) PO SCH (10:19)
[2021-11-17] MEDS: LISINOPRIL 10 MG TABLET PO SCH (10:19)
[2021-11-17] MEDS: HYDROCHLOROTHIAZIDE 12.5 MG CAPSULE (FP) PO SCH (10:19)
[2021-11-17] MEDS: PRENATAL VITAMINS W/ FOLIC ACID TABLET (FP) PO SCH (10:19)
[2021-11-17] MEDS: ACETAMINOPHEN 325 MG TABLET (FP) PO PRN (10:21)
[2021-11-17] MEDS: NICOTINE 7 MG/24 HOURS TOPICAL PATCH TD SCH (10:22)
[2021-11-17] MEDS: LIDOCAINE 5% TOPICAL PATCH TP SCH (11:52)
[2021-11-17] MEDS: MELATONIN 5 MG TABLETS PO SCH (21:51)
[2021-11-17] MEDS: THIAMINE HCL 100 MG TABLET (FP) PO SCH (21:51)
[2021-11-17] MEDS: LIDOCAINE PATCH REMOVAL MC SCH (22:00)
[2021-11-18] MEDS: NICOTINE 7 MG/24 HOURS TOPICAL PATCH TD SCH (09:37)
[2021-11-18] MEDS: LIDOCAINE 5% TOPICAL PATCH TP SCH (09:38)
[2021-11-18] MEDS: PRENATAL VITAMINS W/ FOLIC ACID TABLET (FP) PO SCH (09:38)
[2021-11-18] MEDS: BACLOFEN 10 MG TABLET (FP) PO SCH ×2 (09:38→21:45)
[2021-11-18] MEDS: ACETAMINOPHEN 325 MG TABLET (FP) PO PRN (09:40)
[2021-11-18] MEDS: HYDROCHLOROTHIAZIDE 12.5 MG CAPSULE (FP) PO SCH (12:09)
[2021-11-18] MEDS: LISINOPRIL 10 MG TABLET PO SCH (12:10)
[2021-11-18] MEDS: amLODIPine BESYLATE 5 MG TABLET (FP) PO SCH (12:10)
[2021-11-18] MEDS: LIDOCAINE PATCH REMOVAL MC SCH (21:44)
[2021-11-18] MEDS: THIAMINE HCL 100 MG TABLET (FP) PO SCH (21:45)
[2021-11-18] MEDS: MELATONIN 5 MG TABLETS PO SCH (21:45)
[2021-11-19] MEDS: amLODIPine BESYLATE 5 MG TABLET (FP) PO SCH (10:20)
[2021-11-19] MEDS: BACLOFEN 10 MG TABLET (FP) PO SCH ×2 (10:20→21:46)
[2021-11-19] MEDS: LISINOPRIL 10 MG TABLET PO SCH (10:20)
[2021-11-19] MEDS: HYDROCHLOROTHIAZIDE 12.5 MG CAPSULE (FP) PO SCH (10:21)
[2021-11-19] MEDS: LIDOCAINE 5% TOPICAL PATCH TP SCH (10:21)
[2021-11-19] MEDS: NICOTINE 7 MG/24 HOURS TOPICAL PATCH TD SCH (10:22)
[2021-11-19] MEDS: PRENATAL VITAMINS W/ FOLIC ACID TABLET (FP) PO SCH (10:23)
[2021-11-19] MEDS: MELATONIN 5 MG TABLETS PO SCH (21:46)
[2021-11-19] MEDS: THIAMINE HCL 100 MG TABLET (FP) PO SCH (21:46)
[2021-11-19] MEDS: LIDOCAINE PATCH REMOVAL MC SCH (21:46)
[2021-11-20] MEDS: PRENATAL VITAMINS W/ FOLIC ACID TABLET (FP) PO SCH (09:57)
[2021-11-20] MEDS: LIDOCAINE 5% TOPICAL PATCH TP SCH (09:58)
[2021-11-20] MEDS: amLODIPine BESYLATE 5 MG TABLET (FP) PO SCH (09:58)
[2021-11-20] MEDS: LISINOPRIL 10 MG TABLET PO SCH (09:58)
[2021-11-20] MEDS: HYDROCHLOROTHIAZIDE 12.5 MG CAPSULE (FP) PO SCH (09:58)
[2021-11-20] MEDS: BACLOFEN 10 MG TABLET (FP) PO SCH ×2 (09:58→21:35)
[2021-11-20] MEDS: NICOTINE 7 MG/24 HOURS TOPICAL PATCH TD SCH (09:59)
[2021-11-20] MEDS: LIDOCAINE PATCH REMOVAL MC SCH (21:34)
[2021-11-20] MEDS: MELATONIN 5 MG TABLETS PO SCH (21:35)
[2021-11-20] MEDS: THIAMINE HCL 100 MG TABLET (FP) PO SCH (21:35)
[2021-11-21] MEDS: LIDOCAINE 5% TOPICAL PATCH TP SCH (09:42)
[2021-11-21] MEDS: PRENATAL VITAMINS W/ FOLIC ACID TABLET (FP) PO SCH (09:42)
[2021-11-21] MEDS: amLODIPine BESYLATE 5 MG TABLET (FP) PO SCH (09:42)
[2021-11-21] MEDS: NICOTINE 7 MG/24 HOURS TOPICAL PATCH TD SCH (09:42)
[2021-11-21] MEDS: LISINOPRIL 10 MG TABLET PO SCH (09:42)
[2021-11-21] MEDS: BACLOFEN 10 MG TABLET (FP) PO SCH ×2 (09:43→21:33)
[2021-11-21] MEDS: HYDROCHLOROTHIAZIDE 12.5 MG CAPSULE (FP) PO SCH (09:44)
[2021-11-21] MEDS: MELATONIN 5 MG TABLETS PO SCH (21:33)
[2021-11-21] MEDS: LIDOCAINE PATCH REMOVAL MC SCH (21:33)
[2021-11-21] MEDS: THIAMINE HCL 100 MG TABLET (FP) PO SCH (21:37)
[2021-11-22] MEDS: ACETAMINOPHEN 325 MG TABLET (FP) PO PRN ×2 (06:02→19:22)
[2021-11-22] MEDS: HYDROCHLOROTHIAZIDE 12.5 MG CAPSULE (FP) PO SCH (09:52)
[2021-11-22] MEDS: amLODIPine BESYLATE 5 MG TABLET (FP) PO SCH (09:52)
[2021-11-22] MEDS: LISINOPRIL 10 MG TABLET PO SCH (09:52)
[2021-11-22] MEDS: BACLOFEN 10 MG TABLET (FP) PO SCH ×2 (09:52→22:26)
[2021-11-22] MEDS: PRENATAL VITAMINS W/ FOLIC ACID TABLET (FP) PO SCH (09:53)
[2021-11-22] MEDS: NICOTINE 7 MG/24 HOURS TOPICAL PATCH TD SCH (09:53)
[2021-11-22] MEDS: LIDOCAINE 5% TOPICAL PATCH TP SCH (12:22)
[2021-11-22] MEDS: LIDOCAINE PATCH REMOVAL MC SCH (22:26)
[2021-11-22] MEDS: THIAMINE HCL 100 MG TABLET (FP) PO SCH (22:26)
[2021-11-22] MEDS: MELATONIN 5 MG TABLETS PO SCH (22:26)
[2021-11-23] MEDS: PRENATAL VITAMINS W/ FOLIC ACID TABLET (FP) PO SCH (09:51)
[2021-11-23] MEDS: ACETAMINOPHEN 325 MG TABLET (FP) PO PRN (09:53)
[2021-11-23] MEDS: amLODIPine BESYLATE 5 MG TABLET (FP) PO SCH (09:55)
[2021-11-23] MEDS: BACLOFEN 10 MG TABLET (FP) PO SCH ×2 (09:55→22:08)
[2021-11-23] MEDS: NICOTINE 7 MG/24 HOURS TOPICAL PATCH TD SCH (09:56)
[2021-11-23] MEDS: HYDROCHLOROTHIAZIDE 12.5 MG CAPSULE (FP) PO SCH (09:56)
[2021-11-23] MEDS: LISINOPRIL 10 MG TABLET PO SCH (09:56)
[2021-11-23] MEDS: LIDOCAINE 5% TOPICAL PATCH TP SCH (09:56)
[2021-11-23] MEDS: THIAMINE HCL 100 MG TABLET (FP) PO SCH (22:03)
[2021-11-23] MEDS: MELATONIN 5 MG TABLETS PO SCH (22:03)
[2021-11-23] MEDS: LIDOCAINE PATCH REMOVAL MC SCH (22:08)
[2021-11-24] MEDS: amLODIPine BESYLATE 5 MG TABLET (FP) PO SCH (10:21)
[2021-11-24] MEDS: LIDOCAINE 5% TOPICAL PATCH TP SCH (10:21)
[2021-11-24] MEDS: HYDROCHLOROTHIAZIDE 12.5 MG CAPSULE (FP) PO SCH ×2 (10:21→10:42)
[2021-11-24] MEDS: BACLOFEN 10 MG TABLET (FP) PO SCH ×2 (10:21→21:36)
[2021-11-24] MEDS: NICOTINE 7 MG/24 HOURS TOPICAL PATCH TD SCH (10:21)
[2021-11-24] MEDS: PRENATAL VITAMINS W/ FOLIC ACID TABLET (FP) PO SCH (10:22)
[2021-11-24] MEDS: LISINOPRIL 10 MG TABLET PO SCH (10:23)
[2021-11-24] MEDS: LIDOCAINE PATCH REMOVAL MC SCH (21:35)
[2021-11-24] MEDS: MELATONIN 5 MG TABLETS PO SCH (21:36)
[2021-11-24] MEDS: THIAMINE HCL 100 MG TABLET (FP) PO SCH (21:36)
[2021-11-25] MEDS: ACETAMINOPHEN 325 MG TABLET (FP) PO PRN ×3 (06:16→21:08)
[2021-11-25] MEDS: PRENATAL VITAMINS W/ FOLIC ACID TABLET (FP) PO SCH (09:44)
[2021-11-25] MEDS: HYDROCHLOROTHIAZIDE 12.5 MG CAPSULE (FP) PO SCH (09:45)
[2021-11-25] MEDS: BACLOFEN 10 MG TABLET (FP) PO SCH ×2 (09:45→21:07)
[2021-11-25] MEDS: amLODIPine BESYLATE 5 MG TABLET (FP) PO SCH (09:46)
[2021-11-25] MEDS: NICOTINE 7 MG/24 HOURS TOPICAL PATCH TD SCH (09:46)
[2021-11-25] MEDS: LISINOPRIL 10 MG TABLET PO SCH (09:46)
[2021-11-25] MEDS: LIDOCAINE 5% TOPICAL PATCH TP SCH (09:47)
[2021-11-25] MEDS: THIAMINE HCL 100 MG TABLET (FP) PO SCH (21:08)
[2021-11-25] MEDS: LIDOCAINE PATCH REMOVAL MC SCH (21:09)
[2021-11-25] MEDS: MELATONIN 5 MG TABLETS PO SCH (21:10)
[2021-11-26] MEDS: ACETAMINOPHEN 325 MG TABLET (FP) PO PRN ×2 (06:26→21:03)
[2021-11-26] MEDS: NICOTINE 7 MG/24 HOURS TOPICAL PATCH TD SCH (09:43)
[2021-11-26] MEDS: LIDOCAINE 5% TOPICAL PATCH TP SCH (09:43)
[2021-11-26] MEDS: amLODIPine BESYLATE 5 MG TABLET (FP) PO SCH (09:44)
[2021-11-26] MEDS: BACLOFEN 10 MG TABLET (FP) PO SCH ×2 (09:44→21:03)
[2021-11-26] MEDS: PRENATAL VITAMINS W/ FOLIC ACID TABLET (FP) PO SCH (09:44)
[2021-11-26] MEDS: LISINOPRIL 10 MG TABLET PO SCH (09:44)
[2021-11-26] MEDS: HYDROCHLOROTHIAZIDE 12.5 MG CAPSULE (FP) PO SCH (09:44)
[2021-11-26] MEDS: THIAMINE HCL 100 MG TABLET (FP) PO SCH (21:03)
[2021-11-26] MEDS: LIDOCAINE PATCH REMOVAL MC SCH (21:14)
[2021-11-26] MEDS: MELATONIN 5 MG TABLETS PO SCH (21:15)
[2021-11-27 07:04] VITALS: TEMP 97.3
[2021-11-27 08:55] VITALS: BP 136/61; PULSE 59; RESP 17
[2021-11-27] MEDS: amLODIPine BESYLATE 5 MG TABLET (FP) PO SCH (09:19)
[2021-11-27] MEDS: HYDROCHLOROTHIAZIDE 12.5 MG CAPSULE (FP) PO SCH (09:20)
[2021-11-27] MEDS: BACLOFEN 10 MG TABLET (FP) PO SCH (09:20)
[2021-11-27] MEDS: PRENATAL VITAMINS W/ FOLIC ACID TABLET (FP) PO SCH (09:20)
[2021-11-27] MEDS: NICOTINE 7 MG/24 HOURS TOPICAL PATCH TD SCH (09:20)
[2021-11-27] MEDS: LISINOPRIL 10 MG TABLET PO SCH (09:21)
[2021-11-27] MEDS: LIDOCAINE 5% TOPICAL PATCH TP SCH (09:21)
== END 2021-11-27 09:25 | disposition home or self-care (01) | DRG 772 ==
LOC: YASAS 11:02 → Y5N 13:57
PROVIDERS: ADMIT Allergy & Immunology; ATTEND Psychiatry & Neurology Pain Medicine
PROC: HZ42ZZZ Group Counseling for Substance Abuse Treatment, Cognitive-Behavioral (ICD-10-PCS; principal; 2021-11-15)
DX: F10.20 Alcohol dependence, uncomplicated (principal); F14.20 Cocaine dependence, uncomplicated; F12.20 Cannabis dependence, uncomplicated; F17.210 Nicotine dependence, cigarettes, uncomplicated; I10 Essential (primary) hypertension; R73.03 Prediabetes; D57.3 Sickle-cell trait; M54.9 Dorsalgia, unspecified; Z86.59 Personal history of other mental and behavioral disorders; Z59.00 Homelessness unspecified
CPT/HCPCS: 36415; 80053; 81003; 82962; 83036; 85027; 86780; C9803-CS; J0475; U0003; U0005

== ENCOUNTER 2022-02-27 16:31 | Inpatient (IN) | payer OTHER ==
[2022-02-27 17:19] VITALS: BMI 26.6
[2022-02-27] MEDS ORDERED: IBUPROFEN 400 MG TABLET (FP) PO PRN (20:39)
[2022-02-27] MEDS ORDERED: ACETAMINOPHEN 325 MG TABLET (FP) PO PRN (20:39)
[2022-02-27] MEDS ORDERED: hydrOXYzine PAMOATE 25 MG CAPSULE (FP) PO PRN (20:39)
[2022-02-27] MEDS ORDERED: MAG HYDROX/AL HYDROX/SIMETH 30 ML UNIT-DOSE CUP PO PRN (20:39)
[2022-02-27] MEDS ORDERED: BENZOCAINE/MENTHOL (CHLORASEPTIC ) LOZENGE MM PRN (20:39)
[2022-02-27] MEDS ORDERED: POLYETHYLENE GLYCOL (HEALTHYLAX) 3350 17 GM PACKET PO PRN (20:39)
[2022-02-27] MEDS ORDERED: P-EPHED 60MG/TRIPROLIDI 2.5MG TABLET PO PRN (20:39)
[2022-02-27] MEDS ORDERED: NICOTINE 10 MG CARTRIDGE (INHALER) IH PRN (20:39)
[2022-02-27] MEDS ORDERED: LOPERAMIDE HCL 2 MG CAPSULE PO PRN (20:39)
[2022-02-27] MEDS ORDERED: MELATONIN 5 MG TABLETS PO PRN (20:39)
[2022-02-27] MEDS ORDERED: MAGNESIUM HYDROX 2400MG/30ML ORAL SUSPENSION 30 ML CUP PO PRN (20:39)
[2022-02-28] MEDS: THIAMINE HCL 100 MG TABLET (FP) PO SCH ×2 (01:22→21:46)
[2022-02-28] MEDS: LISINOPRIL 10 MG TABLET PO SCH ×2 (01:24→10:23)
[2022-02-28] MEDS: PRENATAL VITAMINS W/ FOLIC ACID TABLET (FP) PO SCH (10:23)
[2022-02-28] MEDS: guaiFENesin 200 MG/10 ML 10 ML UNIT-DOSE CUPS PO PRN (10:26)
[2022-02-28 12:55] LABS: HEMATOCRIT 38.4 % (35.4-49); HEMOGLOBIN 12.8 GM/dL (11.7-16.9); MCH 29.3 pg (25.7-33.7); MCHC 33.3 g/dl (32.0-35.9); MEAN CELL VOLUME 87.9 fl (80-96); MEAN PLT VOLUME 8.1 fl (7.5-11.1); PLATELET COUNT 183 10^3/uL (134-434); RBC 4.37 M/mm3 (4.00-5.60); RDW 14.8 % (11.9-15.9); WHITE BLOOD COUNT 9.6 K/mm3 (4.0-10.0)
[2022-02-28 13:04] LABS: CALCIUM 8.8 mg/dL (8.5-10.1)
[2022-02-28 13:05] LABS: ALBUMIN 3.7 g/dl (3.4-5.0); BLOOD UREA NITROGEN 15.7 mg/dL (7-18)
[2022-02-28 13:08] LABS: EPI CELLS 9 /uL (0-25.1); HYALINE CASTS 1 /uL (0-3.1); URINE APPEARANCE CLEAR; URINE BACTERIA 5 /uL (0-1359); URINE BILIRUBIN NEGATIVE (NEGATIVE); URINE COLOR YELLOW; URINE GLUCOSE (UA) NEGATIVE (NEGATIVE); URINE KETONE 1+ (NEGATIVE); URINE LEUK ESTERASE TRACE (NEGATIVE); URINE NITRITE NEGATIVE (NEGATIVE); URINE PROTEIN TRACE (NEGATIVE); URINE RBC 7 /uL (0-23.9); URINE WBC 27 /uL (0-25.8)
[2022-02-28 13:10] LABS: BILIRUBIN,TOTAL 1.3 mg/dL (0.2-1); TOT PROT 6.8 g/dl (6.4-8.2)
[2022-03-01] MEDS: PRENATAL VITAMINS W/ FOLIC ACID TABLET (FP) PO SCH (10:16)
[2022-03-01] MEDS: LISINOPRIL 10 MG TABLET PO SCH (10:17)
[2022-03-01] MEDS: HYDROCHLOROTHIAZIDE 12.5 MG CAPSULE (FP) PO SCH (14:44)
[2022-03-01] MEDS: amLODIPine BESYLATE 5 MG TABLET (FP) PO SCH (14:44)
[2022-03-01] MEDS: THIAMINE HCL 100 MG TABLET (FP) PO SCH (21:46)
[2022-03-01] MEDS: METHYL SALICYLATE/MENTHOL OINT 30 GM TUBE TP SCH (21:46)
[2022-03-02] MEDS ORDERED: POTASSIUM CHLORIDE TABS 20 MEQ TABLET.ER (FP) PO ONE (10:18)
[2022-03-02] MEDS: amLODIPine BESYLATE 5 MG TABLET (FP) PO SCH (10:23)
[2022-03-02] MEDS: LISINOPRIL 10 MG TABLET PO SCH (10:23)
[2022-03-02] MEDS: PRENATAL VITAMINS W/ FOLIC ACID TABLET (FP) PO SCH (10:23)
[2022-03-02] MEDS: HYDROCHLOROTHIAZIDE 12.5 MG CAPSULE (FP) PO SCH (10:24)
[2022-03-02] MEDS: METHYL SALICYLATE/MENTHOL OINT 30 GM TUBE TP SCH ×2 (10:24→21:23)
[2022-03-02] MEDS: guaiFENesin 200 MG/10 ML 10 ML UNIT-DOSE CUPS PO PRN (11:25)
[2022-03-02] MEDS: THIAMINE HCL 100 MG TABLET (FP) PO SCH (21:23)
[2022-03-03 09:29] LABS: CALCIUM 8.6 mg/dL (8.5-10.1)
[2022-03-03 09:30] LABS: ALBUMIN 3.7 g/dl (3.4-5.0); MAGNESIUM 2.1 mg/dL (1.8-2.4)
[2022-03-03 09:33] LABS: CREATININE 1.1 mg/dL (0.55-1.3)
[2022-03-03 09:34] LABS: BILIRUBIN,TOTAL 0.5 mg/dL (0.2-1); TOT PROT 7.2 g/dl (6.4-8.2)
[2022-03-03] MEDS: HYDROCHLOROTHIAZIDE 12.5 MG CAPSULE (FP) PO SCH (09:37)
[2022-03-03] MEDS: METHYL SALICYLATE/MENTHOL OINT 30 GM TUBE TP SCH (09:37)
[2022-03-03] MEDS: LISINOPRIL 10 MG TABLET PO SCH (09:37)
[2022-03-03] MEDS: amLODIPine BESYLATE 5 MG TABLET (FP) PO SCH (09:37)
[2022-03-03] MEDS: PRENATAL VITAMINS W/ FOLIC ACID TABLET (FP) PO SCH (09:37)
[2022-03-03] MEDS ORDERED: ALBUTEROL SO4 2.5/IPRATROPIUM 0.5 INH SOL 3 ML VIAL.NEB. NEB PRN (13:50)
[2022-03-03] MEDS ORDERED: LACTULOSE 20 GM/30 ML UDC (FOR ORAL USE ONLY) PO SCH (14:00)
[2022-03-03 14:17] VITALS: BP 120/70; PULSE 75; RESP 18; TEMP 95.5
== END 2022-03-03 22:11 | disposition short-term general hospital (02) | DRG 772 ==
LOC: YASAS 16:31 → Y6N 21:14 → Y3W 22:20
PROVIDERS: ADMIT Allergy & Immunology; ATTEND Psychiatry & Neurology Pain Medicine
PROC: HZ42ZZZ Group Counseling for Substance Abuse Treatment, Cognitive-Behavioral (ICD-10-PCS; principal; 2022-02-27)
DX: F14.20 Cocaine dependence, uncomplicated (principal); F10.10 Alcohol abuse, uncomplicated; F17.210 Nicotine dependence, cigarettes, uncomplicated; F31.9 Bipolar disorder, unspecified; F20.9 Schizophrenia, unspecified; I10 Essential (primary) hypertension; M54.50 Low back pain, unspecified; R05.9 Cough, unspecified; R06.02 Shortness of breath; R79.89 Other specified abnormal findings of blood chemistry
CPT/HCPCS: 36415; 80053; 81003; 82140; 83735; 85027; 86780; 93005; 93010; C9803-CS; U0003; U0005

== ENCOUNTER 2022-03-03 15:02 | Inpatient (IN) | payer OTHER ==
[2022-03-03 15:30] VITALS: BMI 27.3
[2022-03-03] MEDS ORDERED: SODIUM CHLORIDE FOR INHALATION 3 ML VIAL.NEB IH ONE (16:03)
[2022-03-03] MEDS: ALBUTEROL SO4 2.5/IPRATROPIUM 0.5 INH SOL 3 ML VIAL.NEB. NEB SCH ×4 (16:15→17:00)
[2022-03-03] MEDS ORDERED: ALBUTEROL SO4 2.5/IPRATROPIUM 0.5 INH SOL 3 ML VIAL.NEB. NEB ONE (16:31)
[2022-03-03] MEDS ORDERED: MIDAZOLAM HCL 2 MG/2 ML SINGLE DOSE VIAL ONE (17:01)
[2022-03-03] MEDS ORDERED: LIDOCAINE 1%/EPI 1:100000 (20 ML MULTI DOSE VIAL) ONE (17:02)
[2022-03-03 17:45] LABS: BASO % 0.5 % (0-2.0); EOS % 2.6 % (0-4.5); HEMATOCRIT 40.7 % (35.4-49); HEMOGLOBIN 13.7 GM/dL (11.7-16.9); LYMPH % 23.4 % (8-40); MCH 29.9 pg (25.7-33.7); MCHC 33.7 g/dl (32.0-35.9); MEAN CELL VOLUME 88.6 fl (80-96); MEAN PLT VOLUME 8.2 fl (7.5-11.1); MONO % 9.6 % (3.8-10.2); NEUT % 63.9 % (42.8-82.8); PLATELET COUNT 197 10^3/uL (134-434); RBC 4.59 M/mm3 (4.00-5.60); RDW 15.1 % (11.9-15.9); WHITE BLOOD COUNT 9.1 K/mm3 (4.0-10.0)
[2022-03-03] MEDS ORDERED: ACETAMINOPHEN INJECTION 100 ML IVPB ONE (17:56)
[2022-03-03 18:02] LABS: BLOOD UREA NITROGEN 13.8 mg/dL (7-18)
[2022-03-03 18:03] LABS: ALBUMIN 3.8 g/dl (3.4-5.0)
[2022-03-03 18:07] LABS: BILIRUBIN,TOTAL 0.4 mg/dL (0.2-1); TOT PROT 7.7 g/dl (6.4-8.2)
[2022-03-03] MEDS ORDERED: ACETAMINOPHEN 1000 MG/100 ML BAG IVPB ONE (18:49)
[2022-03-03] MEDS ORDERED: ACETAMINOPHEN 325 MG TABLET (FP) PO PRN (22:19)
[2022-03-03] MEDS ORDERED: ACETAMINOPHEN 325 MG TABLET (FP) ONE (22:37)
[2022-03-03] MEDS ORDERED: ATORVASTATIN CA 40 MG TABLET (FP) ONE (22:37)
[2022-03-03] MEDS: ATORVASTATIN CA 40 MG TABLET (FP) PO SCH (22:45)
[2022-03-04 08:24] LABS: BASO % 0.4 % (0-2.0); EOS % 2.7 % (0-4.5); HEMATOCRIT 40.1 % (35.4-49); HEMOGLOBIN 13.4 GM/dL (11.7-16.9); LYMPH % 17.2 % (8-40); MCHC 33.3 g/dl (32.0-35.9); MEAN CELL VOLUME 87.2 fl (80-96); MEAN PLT VOLUME 8.4 fl (7.5-11.1); NEUT % 70.7 % (42.8-82.8); PLATELET COUNT 208 10^3/uL (134-434); RDW 14.7 % (11.9-15.9); WHITE BLOOD COUNT 7.9 K/mm3 (4.0-10.0)
[2022-03-04 08:53] LABS: CALCIUM 8.5 mg/dL (8.5-10.1)
[2022-03-04 08:54] LABS: BLOOD UREA NITROGEN 13.6 mg/dL (7-18)
[2022-03-04 08:56] LABS: ALBUMIN 3.4 g/dl (3.4-5.0); MAGNESIUM 2.3 mg/dL (1.8-2.4); PHOSPHOROUS 3.4 mg/dL (2.5-4.9)
[2022-03-04 08:57] LABS: CREATININE 0.9 mg/dL (0.55-1.3)
[2022-03-04 08:59] LABS: BILIRUBIN,TOTAL 0.5 mg/dL (0.2-1); TOT PROT 6.5 g/dl (6.4-8.2)
[2022-03-04] MEDS: ACETAMINOPHEN 1000 MG/100 ML BAG IVPB PRN ×2 (09:25→17:09)
[2022-03-04] MEDS: ENOXAPARIN NA (PORCINE) 40 MG/0.4 ML DISP.SYRIN SQ SCH (09:26)
[2022-03-04] MEDS: HYDROCHLOROTHIAZIDE 12.5 MG CAPSULE (FP) PO SCH (09:26)
[2022-03-04] MEDS: amLODIPine BESYLATE 10 MG TABLET (FP) PO SCH (09:26)
[2022-03-04] MEDS: ATORVASTATIN CA 40 MG TABLET (FP) PO SCH (21:29)
[2022-03-05] MEDS: ACETAMINOPHEN 1000 MG/100 ML BAG IVPB PRN (00:45)
[2022-03-05 07:46] LABS: BASO % 0.5 % (0-2.0); EOS % 2.9 % (0-4.5); HEMATOCRIT 40.6 % (35.4-49); HEMOGLOBIN 13.8 GM/dL (11.7-16.9); LYMPH % 16.9 % (8-40); MCH 29.6 pg (25.7-33.7); MEAN CELL VOLUME 87.1 fl (80-96); MEAN PLT VOLUME 8.4 fl (7.5-11.1); MONO % 8.9 % (3.8-10.2); NEUT % 70.8 % (42.8-82.8); PLATELET COUNT 205 10^3/uL (134-434); RBC 4.66 M/mm3 (4.00-5.60); RDW 14.7 % (11.9-15.9); WHITE BLOOD COUNT 8.7 K/mm3 (4.0-10.0)
[2022-03-05 08:03] LABS: ALBUMIN 3.5 g/dl (3.4-5.0); BLOOD UREA NITROGEN 13.3 mg/dL (7-18); CALCIUM 8.5 mg/dL (8.5-10.1)
[2022-03-05 08:06] LABS: CREATININE 0.9 mg/dL (0.55-1.3); PHOSPHOROUS 2.8 mg/dL (2.5-4.9)
[2022-03-05 08:07] LABS: BILIRUBIN,TOTAL 0.4 mg/dL (0.2-1)
[2022-03-05] MEDS ORDERED: ACETAMINOPHEN 1000 MG/100 ML BAG IVPB PRN (08:21)
[2022-03-05] MEDS: LISINOPRIL 10 MG TABLET PO SCH (09:09)
[2022-03-05] MEDS: amLODIPine BESYLATE 10 MG TABLET (FP) PO SCH (09:09)
[2022-03-05] MEDS: HYDROCHLOROTHIAZIDE 12.5 MG CAPSULE (FP) PO SCH (09:09)
[2022-03-05] MEDS: ENOXAPARIN NA (PORCINE) 40 MG/0.4 ML DISP.SYRIN SQ SCH (09:09)
[2022-03-05] MEDS ORDERED: ACETAMINOPHEN 1000 MG/100 ML BAG IVPB ONE (09:11)
[2022-03-05] MEDS: ACETAMINOPHEN 325 MG TABLET (FP) PO PRN (17:21)
[2022-03-05] MEDS: ATORVASTATIN CA 40 MG TABLET (FP) PO SCH (21:43)
[2022-03-06 08:10] LABS: BASO % 0.4 % (0-2.0); EOS % 2.5 % (0-4.5); HEMATOCRIT 39.8 % (35.4-49); HEMOGLOBIN 13.7 GM/dL (11.7-16.9); LYMPH % 15.5 % (8-40); MCH 30.3 pg (25.7-33.7); MCHC 34.6 g/dl (32.0-35.9); MEAN CELL VOLUME 87.6 fl (80-96); MEAN PLT VOLUME 8.2 fl (7.5-11.1); MONO % 10.2 % (3.8-10.2); NEUT % 71.4 % (42.8-82.8); PLATELET COUNT 207 10^3/uL (134-434); RBC 4.54 M/mm3 (4.00-5.60); RDW 14.5 % (11.9-15.9); WHITE BLOOD COUNT 9.2 K/mm3 (4.0-10.0)
[2022-03-06 08:14] LABS: ALBUMIN 3.4 g/dl (3.4-5.0); BLOOD UREA NITROGEN 12.6 mg/dL (7-18); CALCIUM 8.8 mg/dL (8.5-10.1); MAGNESIUM 2.1 mg/dL (1.8-2.4)
[2022-03-06 08:18] LABS: CREATININE 0.9 mg/dL (0.55-1.3); PHOSPHOROUS 3.1 mg/dL (2.5-4.9)
[2022-03-06 08:19] LABS: TOT PROT 6.9 g/dl (6.4-8.2)
[2022-03-06 08:20] LABS: BILIRUBIN,TOTAL 0.3 mg/dL (0.2-1)
[2022-03-06] MEDS: HYDROCHLOROTHIAZIDE 12.5 MG CAPSULE (FP) PO SCH (09:46)
[2022-03-06] MEDS: amLODIPine BESYLATE 10 MG TABLET (FP) PO SCH (09:46)
[2022-03-06] MEDS: ACETAMINOPHEN 325 MG TABLET (FP) PO PRN ×2 (09:46→19:59)
[2022-03-06] MEDS: LISINOPRIL 10 MG TABLET PO SCH (09:47)
[2022-03-06] MEDS: ENOXAPARIN NA (PORCINE) 40 MG/0.4 ML DISP.SYRIN SQ SCH (09:47)
[2022-03-06] MEDS: ATORVASTATIN CA 40 MG TABLET (FP) PO SCH ×2 (19:59→21:28)
[2022-03-07 07:37] LABS: BASO % 0.6 % (0-2.0); EOS % 2.8 % (0-4.5); HEMATOCRIT 42.6 % (35.4-49); LYMPH % 19.1 % (8-40); MCHC 32.8 g/dl (32.0-35.9); MEAN CELL VOLUME 88.3 fl (80-96); MEAN PLT VOLUME 8.2 fl (7.5-11.1); MONO % 11.3 % (3.8-10.2); NEUT % 66.2 % (42.8-82.8); PLATELET COUNT 225 10^3/uL (134-434); RBC 4.82 M/mm3 (4.00-5.60); RDW 14.8 % (11.9-15.9); WHITE BLOOD COUNT 7.4 K/mm3 (4.0-10.0)
[2022-03-07 08:17] LABS: ALBUMIN 3.3 g/dl (3.4-5.0); BLOOD UREA NITROGEN 13.2 mg/dL (7-18); CALCIUM 8.7 mg/dL (8.5-10.1); MAGNESIUM 2.2 mg/dL (1.8-2.4)
[2022-03-07 08:21] LABS: BILIRUBIN,TOTAL 0.5 mg/dL (0.2-1); CREATININE 0.9 mg/dL (0.55-1.3); PHOSPHOROUS 3.2 mg/dL (2.5-4.9)
[2022-03-07 08:23] LABS: TOT PROT 6.9 g/dl (6.4-8.2)
[2022-03-07 11:04] VITALS: RESP 16
[2022-03-07] MEDS: ACETAMINOPHEN 325 MG TABLET (FP) PO PRN (11:04)
[2022-03-07] MEDS: HYDROCHLOROTHIAZIDE 12.5 MG CAPSULE (FP) PO SCH (11:06)
[2022-03-07] MEDS: ENOXAPARIN NA (PORCINE) 40 MG/0.4 ML DISP.SYRIN SQ SCH (11:06)
[2022-03-07] MEDS: amLODIPine BESYLATE 10 MG TABLET (FP) PO SCH (11:06)
[2022-03-07] MEDS: LISINOPRIL 10 MG TABLET PO SCH (11:06)
[2022-03-07 14:01] VITALS: BP 118/70; PULSE 69; TEMP 98.9
== END 2022-03-07 18:13 | disposition other institution (70) | DRG 143 ==
LOC: JER 15:02 → JERBED 18:27 → J7W 03-04 01:53 → J4W 03-04 05:02 → J8W 03-07 16:56
PROVIDERS: ADMIT Internal Medicine; ATTEND Internal Medicine
PROC: 0W9930Z Drainage of Right Pleural Cavity with Drainage Device, Percutaneous Approach (ICD-10-PCS; principal; 2022-03-03)
DX: J93.0 Spontaneous tension pneumothorax (principal); J43.9 Emphysema, unspecified; D57.3 Sickle-cell trait; F14.20 Cocaine dependence, uncomplicated; I10 Essential (primary) hypertension; F41.9 Anxiety disorder, unspecified; E78.5 Hyperlipidemia, unspecified
CPT/HCPCS: 0241U-QW; 36415; 71045-TC-FY; 71046-TC-FY; 71250-TC; 80053; 83735; 84100; 84484; 85025; 93005; 93010; 99291

== ENCOUNTER 2022-03-07 17:49 | Inpatient (IN) | payer OTHER ==
[2022-03-07 19:57] VITALS: BMI 25.5
[2022-03-07] MEDS ORDERED: MAG HYDROX/AL HYDROX/SIMETH 30 ML UNIT-DOSE CUP PO PRN (20:47)
[2022-03-07] MEDS ORDERED: MAGNESIUM HYDROX 2400MG/30ML ORAL SUSPENSION 30 ML CUP PO PRN (20:47)
[2022-03-07] MEDS ORDERED: POLYETHYLENE GLYCOL (HEALTHYLAX) 3350 17 GM PACKET PO PRN (20:47)
[2022-03-07] MEDS ORDERED: LOPERAMIDE HCL 2 MG CAPSULE PO PRN (20:47)
[2022-03-07] MEDS ORDERED: P-EPHED 60MG/TRIPROLIDI 2.5MG TABLET PO PRN (20:47)
[2022-03-07] MEDS ORDERED: BENZOCAINE/MENTHOL (CHLORASEPTIC ) LOZENGE MM PRN (20:47)
[2022-03-07] MEDS ORDERED: guaiFENesin 200 MG/10 ML 10 ML UNIT-DOSE CUPS PO PRN (20:47)
[2022-03-07] MEDS: THIAMINE HCL 100 MG TABLET (FP) PO SCH (21:54)
[2022-03-07] MEDS: MELATONIN 5 MG TABLETS PO SCH (21:54)
[2022-03-07] MEDS: ATORVASTATIN CA 40 MG TABLET (FP) PO SCH (21:54)
[2022-03-08] MEDS: ACETAMINOPHEN 325 MG TABLET (FP) PO PRN ×2 (06:18→21:18)
[2022-03-08] MEDS: amLODIPine BESYLATE 5 MG TABLET (FP) PO SCH (09:57)
[2022-03-08] MEDS: PRENATAL VITAMINS W/ FOLIC ACID TABLET (FP) PO SCH (09:57)
[2022-03-08] MEDS: HYDROCHLOROTHIAZIDE 12.5 MG CAPSULE (FP) PO SCH (09:57)
[2022-03-08] MEDS: LISINOPRIL 10 MG TABLET PO SCH (09:57)
[2022-03-08] MEDS: MELATONIN 5 MG TABLETS PO SCH (21:18)
[2022-03-08] MEDS: THIAMINE HCL 100 MG TABLET (FP) PO SCH (21:18)
[2022-03-08] MEDS: ATORVASTATIN CA 40 MG TABLET (FP) PO SCH (21:18)
[2022-03-09] MEDS: HYDROCHLOROTHIAZIDE 12.5 MG CAPSULE (FP) PO SCH (10:10)
[2022-03-09] MEDS: LISINOPRIL 10 MG TABLET PO SCH (10:10)
[2022-03-09] MEDS: amLODIPine BESYLATE 5 MG TABLET (FP) PO SCH (10:10)
[2022-03-09] MEDS: PRENATAL VITAMINS W/ FOLIC ACID TABLET (FP) PO SCH (10:11)
[2022-03-09] MEDS: ACETAMINOPHEN 325 MG TABLET (FP) PO PRN (10:12)
[2022-03-09] MEDS: THIAMINE HCL 100 MG TABLET (FP) PO SCH (21:35)
[2022-03-09] MEDS: ATORVASTATIN CA 40 MG TABLET (FP) PO SCH (21:35)
[2022-03-09] MEDS: MELATONIN 5 MG TABLETS PO SCH (21:35)
[2022-03-10] MEDS: ACETAMINOPHEN 325 MG TABLET (FP) PO PRN (06:19)
[2022-03-10] MEDS: HYDROCHLOROTHIAZIDE 12.5 MG CAPSULE (FP) PO SCH (09:37)
[2022-03-10] MEDS: LISINOPRIL 10 MG TABLET PO SCH (09:37)
[2022-03-10] MEDS: PRENATAL VITAMINS W/ FOLIC ACID TABLET (FP) PO SCH (09:37)
[2022-03-10] MEDS: amLODIPine BESYLATE 5 MG TABLET (FP) PO SCH (09:37)
[2022-03-10] MEDS: THIAMINE HCL 100 MG TABLET (FP) PO SCH (20:05)
[2022-03-10] MEDS: MELATONIN 5 MG TABLETS PO SCH (22:05)
[2022-03-10] MEDS: ATORVASTATIN CA 40 MG TABLET (FP) PO SCH (22:05)
[2022-03-11] MEDS: ACETAMINOPHEN 325 MG TABLET (FP) PO PRN (06:34)
[2022-03-11] MEDS: HYDROCHLOROTHIAZIDE 12.5 MG CAPSULE (FP) PO SCH (09:05)
[2022-03-11] MEDS: LISINOPRIL 10 MG TABLET PO SCH (09:06)
[2022-03-11] MEDS: amLODIPine BESYLATE 5 MG TABLET (FP) PO SCH (09:06)
[2022-03-11] MEDS: PRENATAL VITAMINS W/ FOLIC ACID TABLET (FP) PO SCH (09:06)
[2022-03-11] MEDS: LACTULOSE 20 GM/30 ML UDC (FOR ORAL USE ONLY) PO PRN ×2 (12:00→21:21)
[2022-03-11] MEDS: ATORVASTATIN CA 40 MG TABLET (FP) PO SCH (21:20)
[2022-03-11] MEDS: MELATONIN 5 MG TABLETS PO SCH (21:20)
[2022-03-11] MEDS: THIAMINE HCL 100 MG TABLET (FP) PO SCH (21:20)
[2022-03-11] MEDS: METHYL SALICYLATE/MENTHOL OINT 30 GM TUBE TP SCH (22:35)
[2022-03-12] MEDS: IBUPROFEN 400 MG TABLET (FP) PO PRN ×2 (06:23→21:15)
[2022-03-12] MEDS: METHYL SALICYLATE/MENTHOL OINT 30 GM TUBE TP SCH ×2 (09:53→21:13)
[2022-03-12] MEDS: LISINOPRIL 10 MG TABLET PO SCH (09:53)
[2022-03-12] MEDS: amLODIPine BESYLATE 5 MG TABLET (FP) PO SCH (09:53)
[2022-03-12] MEDS: HYDROCHLOROTHIAZIDE 12.5 MG CAPSULE (FP) PO SCH (09:53)
[2022-03-12] MEDS: PRENATAL VITAMINS W/ FOLIC ACID TABLET (FP) PO SCH (09:54)
[2022-03-12] MEDS: LACTULOSE 20 GM/30 ML UDC (FOR ORAL USE ONLY) PO PRN ×2 (09:55→21:14)
[2022-03-12] MEDS: MELATONIN 5 MG TABLETS PO SCH (21:13)
[2022-03-12] MEDS: THIAMINE HCL 100 MG TABLET (FP) PO SCH (21:13)
[2022-03-12] MEDS: ATORVASTATIN CA 40 MG TABLET (FP) PO SCH (21:13)
[2022-03-13] MEDS: IBUPROFEN 400 MG TABLET (FP) PO PRN (06:16)
[2022-03-13] MEDS: amLODIPine BESYLATE 5 MG TABLET (FP) PO SCH (10:03)
[2022-03-13] MEDS: LISINOPRIL 10 MG TABLET PO SCH (10:03)
[2022-03-13] MEDS: HYDROCHLOROTHIAZIDE 12.5 MG CAPSULE (FP) PO SCH (10:03)
[2022-03-13] MEDS: PRENATAL VITAMINS W/ FOLIC ACID TABLET (FP) PO SCH (10:04)
[2022-03-13] MEDS: LACTULOSE 20 GM/30 ML UDC (FOR ORAL USE ONLY) PO PRN ×2 (10:06→21:19)
[2022-03-13] MEDS: METHYL SALICYLATE/MENTHOL OINT 30 GM TUBE TP SCH ×2 (10:07→21:19)
[2022-03-13] MEDS: THIAMINE HCL 100 MG TABLET (FP) PO SCH (21:18)
[2022-03-13] MEDS: MELATONIN 5 MG TABLETS PO SCH (21:19)
[2022-03-13] MEDS: ATORVASTATIN CA 40 MG TABLET (FP) PO SCH (21:19)
[2022-03-14] MEDS: IBUPROFEN 400 MG TABLET (FP) PO PRN ×2 (06:40→21:24)
[2022-03-14] MEDS: LISINOPRIL 10 MG TABLET PO SCH (09:45)
[2022-03-14] MEDS: METHYL SALICYLATE/MENTHOL OINT 30 GM TUBE TP SCH ×2 (09:45→22:23)
[2022-03-14] MEDS: amLODIPine BESYLATE 5 MG TABLET (FP) PO SCH (09:45)
[2022-03-14] MEDS: PRENATAL VITAMINS W/ FOLIC ACID TABLET (FP) PO SCH (09:45)
[2022-03-14] MEDS: HYDROCHLOROTHIAZIDE 12.5 MG CAPSULE (FP) PO SCH (09:45)
[2022-03-14] MEDS: LACTULOSE 20 GM/30 ML UDC (FOR ORAL USE ONLY) PO PRN ×2 (09:46→21:21)
[2022-03-14] MEDS: ATORVASTATIN CA 40 MG TABLET (FP) PO SCH (21:22)
[2022-03-14] MEDS: MELATONIN 5 MG TABLETS PO SCH (21:23)
[2022-03-14] MEDS: THIAMINE HCL 100 MG TABLET (FP) PO SCH (21:23)
[2022-03-15] MEDS: LISINOPRIL 10 MG TABLET PO SCH (09:51)
[2022-03-15] MEDS: HYDROCHLOROTHIAZIDE 12.5 MG CAPSULE (FP) PO SCH (09:51)
[2022-03-15] MEDS: LACTULOSE 20 GM/30 ML UDC (FOR ORAL USE ONLY) PO PRN ×2 (09:51→21:29)
[2022-03-15] MEDS: amLODIPine BESYLATE 5 MG TABLET (FP) PO SCH (09:52)
[2022-03-15] MEDS: PRENATAL VITAMINS W/ FOLIC ACID TABLET (FP) PO SCH (09:52)
[2022-03-15] MEDS: IBUPROFEN 400 MG TABLET (FP) PO PRN ×2 (09:53→21:30)
[2022-03-15] MEDS: METHYL SALICYLATE/MENTHOL OINT 30 GM TUBE TP SCH ×2 (09:55→21:30)
[2022-03-15] MEDS: THIAMINE HCL 100 MG TABLET (FP) PO SCH (21:29)
[2022-03-15] MEDS: ATORVASTATIN CA 40 MG TABLET (FP) PO SCH (21:29)
[2022-03-15] MEDS: MELATONIN 5 MG TABLETS PO SCH (21:30)
[2022-03-16] MEDS: METHYL SALICYLATE/MENTHOL OINT 30 GM TUBE TP SCH ×2 (09:33→21:44)
[2022-03-16] MEDS: HYDROCHLOROTHIAZIDE 12.5 MG CAPSULE (FP) PO SCH (09:33)
[2022-03-16] MEDS: amLODIPine BESYLATE 5 MG TABLET (FP) PO SCH (09:33)
[2022-03-16] MEDS: PRENATAL VITAMINS W/ FOLIC ACID TABLET (FP) PO SCH (09:34)
[2022-03-16] MEDS: LACTULOSE 20 GM/30 ML UDC (FOR ORAL USE ONLY) PO PRN ×2 (09:34→21:38)
[2022-03-16] MEDS: LISINOPRIL 10 MG TABLET PO SCH (09:34)
[2022-03-16] MEDS: ATORVASTATIN CA 40 MG TABLET (FP) PO SCH (21:38)
[2022-03-16] MEDS: THIAMINE HCL 100 MG TABLET (FP) PO SCH (21:39)
[2022-03-16] MEDS: IBUPROFEN 400 MG TABLET (FP) PO PRN (21:39)
[2022-03-16] MEDS: MELATONIN 5 MG TABLETS PO SCH (21:39)
[2022-03-17] MEDS: IBUPROFEN 400 MG TABLET (FP) PO PRN ×2 (06:45→21:21)
[2022-03-17] MEDS: PRENATAL VITAMINS W/ FOLIC ACID TABLET (FP) PO SCH (09:47)
[2022-03-17] MEDS: amLODIPine BESYLATE 5 MG TABLET (FP) PO SCH (09:47)
[2022-03-17] MEDS: METHYL SALICYLATE/MENTHOL OINT 30 GM TUBE TP SCH ×2 (09:48→21:21)
[2022-03-17] MEDS: HYDROCHLOROTHIAZIDE 12.5 MG CAPSULE (FP) PO SCH (09:48)
[2022-03-17] MEDS: LISINOPRIL 10 MG TABLET PO SCH (09:48)
[2022-03-17] MEDS: LACTULOSE 20 GM/30 ML UDC (FOR ORAL USE ONLY) PO PRN ×2 (09:49→21:21)
[2022-03-17 16:07] LABS: HGB SOLUBILITY Positive (Negative)
[2022-03-17] MEDS: THIAMINE HCL 100 MG TABLET (FP) PO SCH (21:21)
[2022-03-17] MEDS: ATORVASTATIN CA 40 MG TABLET (FP) PO SCH (21:21)
[2022-03-17] MEDS: MELATONIN 5 MG TABLETS PO SCH (21:21)
[2022-03-18] MEDS: METHYL SALICYLATE/MENTHOL OINT 30 GM TUBE TP SCH ×2 (09:24→21:24)
[2022-03-18] MEDS: HYDROCHLOROTHIAZIDE 12.5 MG CAPSULE (FP) PO SCH (09:25)
[2022-03-18] MEDS: amLODIPine BESYLATE 5 MG TABLET (FP) PO SCH (09:25)
[2022-03-18] MEDS: PRENATAL VITAMINS W/ FOLIC ACID TABLET (FP) PO SCH (09:25)
[2022-03-18] MEDS: LISINOPRIL 10 MG TABLET PO SCH (09:25)
[2022-03-18] MEDS: LACTULOSE 20 GM/30 ML UDC (FOR ORAL USE ONLY) PO PRN ×2 (09:26→21:23)
[2022-03-18 11:10] VITALS: RESP 18
[2022-03-18] MEDS: THIAMINE HCL 100 MG TABLET (FP) PO SCH (21:23)
[2022-03-18] MEDS: ATORVASTATIN CA 40 MG TABLET (FP) PO SCH (21:24)
[2022-03-18] MEDS: IBUPROFEN 400 MG TABLET (FP) PO PRN (21:24)
[2022-03-18] MEDS: MELATONIN 5 MG TABLETS PO SCH (21:25)
[2022-03-19 07:08] VITALS: TEMP 98.5
[2022-03-19] MEDS: LACTULOSE 20 GM/30 ML UDC (FOR ORAL USE ONLY) PO PRN (09:36)
[2022-03-19] MEDS: HYDROCHLOROTHIAZIDE 12.5 MG CAPSULE (FP) PO SCH (09:37)
[2022-03-19] MEDS: METHYL SALICYLATE/MENTHOL OINT 30 GM TUBE TP SCH (09:37)
[2022-03-19] MEDS: LISINOPRIL 10 MG TABLET PO SCH (09:37)
[2022-03-19] MEDS: amLODIPine BESYLATE 5 MG TABLET (FP) PO SCH (09:37)
[2022-03-19] MEDS: PRENATAL VITAMINS W/ FOLIC ACID TABLET (FP) PO SCH (09:37)
[2022-03-19] MEDS: IBUPROFEN 400 MG TABLET (FP) PO PRN (09:38)
[2022-03-19 09:39] VITALS: BP 142/69; PULSE 59
== END 2022-03-19 15:13 | disposition home or self-care (01) | DRG 772 ==
LOC: YASAS 17:49 → Y3E 22:42
PROVIDERS: ADMIT Allergy & Immunology; ATTEND Allergy & Immunology
PROC: HZ42ZZZ Group Counseling for Substance Abuse Treatment, Cognitive-Behavioral (ICD-10-PCS; principal; 2022-03-07)
DX: F10.20 Alcohol dependence, uncomplicated (principal); F14.20 Cocaine dependence, uncomplicated; F25.9 Schizoaffective disorder, unspecified; I10 Essential (primary) hypertension; D57.3 Sickle-cell trait; Z86.59 Personal history of other mental and behavioral disorders; Z56.0 Unemployment, unspecified; Z59.00 Homelessness unspecified
CPT/HCPCS: 36415; 82140; 83021; 85660; 87811; C9803-CS; U0003; U0005

== ENCOUNTER 2022-11-28 09:24 | Inpatient (IN) | payer OTHER ==
[2022-11-28 10:06] VITALS: BMI 24.3
[2022-11-28] MEDS ORDERED: IBUPROFEN 600 MG TABLET (FP) PO PRN (10:26)
[2022-11-28] MEDS ORDERED: IBUPROFEN 400 MG TABLET (FP) PO PRN (10:26)
[2022-11-28] MEDS ORDERED: NALOXONE HCL (KLOXXADO) 8 MG SPRAY NS PRN (10:26)
[2022-11-28] MEDS ORDERED: MAG HYDROX/AL HYDROX/SIMETH 30 ML UNIT-DOSE CUP PO PRN (10:26)
[2022-11-28] MEDS ORDERED: hydrOXYzine PAMOATE 25 MG CAPSULE (FP) PO PRN (10:26)
[2022-11-28] MEDS ORDERED: NICOTINE POLACRILEX 2 MG GUM BUC PRN (10:26)
[2022-11-28] MEDS ORDERED: AMMONIUM LACTATE 12% LOTION 225 GM BOTTLE TP PRN (10:26)
[2022-11-28] MEDS ORDERED: POLYETHYLENE GLYCOL (HEALTHYLAX) 3350 17 GM PACKET PO PRN (10:26)
[2022-11-28] MEDS ORDERED: BENZONATATE 200 MG CAPSULE PO PRN (10:26)
[2022-11-28] MEDS ORDERED: NALOXONE HCL 0.4 MG/ML VIAL IM PRN (10:26)
[2022-11-28] MEDS ORDERED: guaiFENesin 600 MG TABLET.ER (FP) PO PRN (10:26)
[2022-11-28] MEDS ORDERED: COLLOIDAL OATMEAL 1 BAR EACH TP PRN (10:26)
[2022-11-28] MEDS ORDERED: LOPERAMIDE HCL 2 MG CAPSULE PO PRN (10:26)
[2022-11-28] MEDS ORDERED: MAGNESIUM HYDROX 2400MG/30ML ORAL SUSPENSION 30 ML CUP PO PRN (10:26)
[2022-11-28] MEDS ORDERED: ONDANSETRON *ODT* 4 MG TABLET SL ONE (11:32)
[2022-11-28] MEDS: amLODIPine BESYLATE 5 MG TABLET (FP) PO SCH (11:36)
[2022-11-28] MEDS: LISINOPRIL 10 MG TABLET PO SCH (11:36)
[2022-11-28] MEDS: HYDROCHLOROTHIAZIDE 12.5 MG CAPSULE (FP) PO SCH (11:36)
[2022-11-28] MEDS ORDERED: LISINOPRIL 10 MG TABLET ONE (11:38)
[2022-11-28] MEDS ORDERED: ONDANSETRON *ODT* 4 MG TABLET ONE (11:38)
[2022-11-28] MEDS ORDERED: amLODIPine BESYLATE 5 MG TABLET (FP) ONE (11:38)
[2022-11-28] MEDS ORDERED: HYDROCHLOROTHIAZIDE 12.5 MG CAPSULE (FP) ONE (11:39)
[2022-11-28] MEDS ORDERED: AZITHROMYCIN 250 MG TABLET PO ONE (12:12)
[2022-11-28] MEDS: ALBUTEROL SO4 HFA INHALER IH PRN ×2 (13:43→17:10)
[2022-11-28] MEDS: MELATONIN 5 MG TABLETS PO SCH (22:21)
[2022-11-28] MEDS: ATORVASTATIN CA 40 MG TABLET (FP) PO SCH (22:21)
[2022-11-28] MEDS: THIAMINE HCL 100 MG TABLET (FP) PO SCH (22:22)
[2022-11-29] MEDS: ALBUTEROL SO4 HFA INHALER IH PRN ×2 (09:16→21:41)
[2022-11-29] MEDS: AZITHROMYCIN 250 MG TABLET PO SCH (09:17)
[2022-11-29] MEDS: LISINOPRIL 10 MG TABLET PO SCH (09:18)
[2022-11-29] MEDS: amLODIPine BESYLATE 5 MG TABLET (FP) PO SCH (09:18)
[2022-11-29] MEDS: HYDROCHLOROTHIAZIDE 12.5 MG CAPSULE (FP) PO SCH (09:18)
[2022-11-29] MEDS: PRENATAL VITAMINS W/ FOLIC ACID TABLET (FP) PO SCH (09:18)
[2022-11-29] MEDS: ACETAMINOPHEN 325 MG TABLET (FP) PO PRN ×2 (09:19→21:42)
[2022-11-29] MEDS ORDERED: TUBERCULIN PPD 5 TU/0.1ML SYRINGE (IN PATIENT USE ONLY) ID ONE (10:00)
[2022-11-29] MEDS ORDERED: TUBERCULIN PPD 5 TU/0.1ML VIAL ID ONE (10:10)
[2022-11-29 11:27] LABS: EPI CELLS 11 /uL (0-25.1); HYALINE CASTS 0 /uL (0-3.1); URINE APPEARANCE CLEAR; URINE BACTERIA 1 /uL (0-1359); URINE BILIRUBIN NEGATIVE (NEGATIVE); URINE COLOR YELLOW; URINE GLUCOSE (UA) NEGATIVE (NEGATIVE); URINE KETONE NEGATIVE (NEGATIVE); URINE LEUK ESTERASE TRACE (NEGATIVE); URINE NITRITE NEGATIVE (NEGATIVE); URINE PROTEIN 1+ (NEGATIVE); URINE RBC 11 /uL (0-23.9); URINE UROBILINOGEN 4.0 E.U/dl mg/dL (0.2-1.0); URINE WBC 17 /uL (0-25.8)
[2022-11-29] MEDS: MELATONIN 5 MG TABLETS PO SCH (21:38)
[2022-11-29] MEDS: THIAMINE HCL 100 MG TABLET (FP) PO SCH (21:38)
[2022-11-29] MEDS: ATORVASTATIN CA 40 MG TABLET (FP) PO SCH (21:39)
[2022-11-30] MEDS: HYDROCHLOROTHIAZIDE 12.5 MG CAPSULE (FP) PO SCH (09:37)
[2022-11-30] MEDS: amLODIPine BESYLATE 5 MG TABLET (FP) PO SCH (09:37)
[2022-11-30] MEDS: PRENATAL VITAMINS W/ FOLIC ACID TABLET (FP) PO SCH (09:37)
[2022-11-30] MEDS: LISINOPRIL 10 MG TABLET PO SCH (09:37)
[2022-11-30] MEDS: AZITHROMYCIN 250 MG TABLET PO SCH (09:38)
[2022-11-30] MEDS: ALBUTEROL SO4 HFA INHALER IH PRN (10:34)
[2022-11-30] MEDS ORDERED: METHOCARBAMOL 500 MG TABLET PO PRN (12:28)
[2022-11-30] MEDS: ATORVASTATIN CA 40 MG TABLET (FP) PO SCH (21:33)
[2022-11-30] MEDS: THIAMINE HCL 100 MG TABLET (FP) PO SCH (21:33)
[2022-11-30] MEDS: MELATONIN 5 MG TABLETS PO SCH (21:33)
[2022-12-01] MEDS: ACETAMINOPHEN 325 MG TABLET (FP) PO PRN (02:19)
[2022-12-01] MEDS: LISINOPRIL 10 MG TABLET PO SCH (09:31)
[2022-12-01] MEDS: amLODIPine BESYLATE 5 MG TABLET (FP) PO SCH (09:32)
[2022-12-01] MEDS: PRENATAL VITAMINS W/ FOLIC ACID TABLET (FP) PO SCH (09:32)
[2022-12-01] MEDS: AZITHROMYCIN 250 MG TABLET PO SCH (09:32)
[2022-12-01] MEDS: ALBUTEROL SO4 HFA INHALER IH PRN ×2 (09:32→21:37)
[2022-12-01] MEDS: HYDROCHLOROTHIAZIDE 12.5 MG CAPSULE (FP) PO SCH (09:33)
[2022-12-01] MEDS: BENZOCAINE/MENTHOL (CHLORASEPTIC ) LOZENGE MM PRN (09:34)
[2022-12-01 11:59] LABS: POTASSIUM 3.6 mmol/L (3.5-5.1)
[2022-12-01 12:02] LABS: BLOOD UREA NITROGEN 6.8 mg/dL (7-18); CALCIUM 8.8 mg/dL (8.5-10.1); HEMATOCRIT 38.3 % (35.4-49); HEMOGLOBIN 12.8 GM/dL (11.7-16.9); MCHC 33.4 g/dl (32.0-35.9); MEAN PLT VOLUME 8.9 fl (7.5-11.1); PLATELET COUNT 247 10^3/uL (134-434); RDW 14.8 % (11.9-15.9); WHITE BLOOD COUNT 8.5 K/mm3 (4.0-10.0)
[2022-12-01 12:04] LABS: CREATININE 0.8 mg/dL (0.55-1.3)
[2022-12-01 12:07] LABS: BILIRUBIN,TOTAL 0.5 mg/dL (0.2-1); TOT PROT 7.1 g/dl (6.4-8.2)
[2022-12-01] MEDS ORDERED: BENZONATATE 200 MG CAPSULE PO PRN (13:39)
[2022-12-01] MEDS ORDERED: ONDANSETRON *ODT* 4 MG TABLET SL PRN (13:51)
[2022-12-01] MEDS: NICOTINE 14 MG/24 HOURS TOPICAL PATCH TD SCH (14:37)
[2022-12-01] MEDS: guaiFENesin 600 MG TABLET.ER (FP) PO SCH ×2 (14:37→21:36)
[2022-12-01] MEDS: BACLOFEN 10 MG TABLET (FP) PO SCH ×2 (14:39→21:36)
[2022-12-01] MEDS: ATORVASTATIN CA 40 MG TABLET (FP) PO SCH (21:36)
[2022-12-01] MEDS: THIAMINE HCL 100 MG TABLET (FP) PO SCH (21:36)
[2022-12-01] MEDS: MELATONIN 5 MG TABLETS PO SCH (21:36)
[2022-12-02] MEDS: BACLOFEN 10 MG TABLET (FP) PO SCH ×3 (06:51→23:38)
[2022-12-02] MEDS: ACETAMINOPHEN 325 MG TABLET (FP) PO PRN ×2 (06:51→19:36)
[2022-12-02] MEDS: BENZOCAINE/MENTHOL (CHLORASEPTIC ) LOZENGE MM PRN (07:33)
[2022-12-02] MEDS: PRENATAL VITAMINS W/ FOLIC ACID TABLET (FP) PO SCH (09:51)
[2022-12-02] MEDS: amLODIPine BESYLATE 5 MG TABLET (FP) PO SCH (09:51)
[2022-12-02] MEDS: NICOTINE 14 MG/24 HOURS TOPICAL PATCH TD SCH (09:51)
[2022-12-02] MEDS: guaiFENesin 600 MG TABLET.ER (FP) PO SCH ×2 (09:51→23:43)
[2022-12-02] MEDS: AZITHROMYCIN 250 MG TABLET PO SCH (09:52)
[2022-12-02] MEDS: ALBUTEROL SO4 HFA INHALER IH PRN (09:52)
[2022-12-02] MEDS: LISINOPRIL 10 MG TABLET PO SCH (10:46)
[2022-12-02] MEDS: HYDROCHLOROTHIAZIDE 12.5 MG CAPSULE (FP) PO SCH (10:46)
[2022-12-02 12:30] LABS: HIV INTERPRETATION NEGATIVE (NEGATIVE)
[2022-12-02] MEDS: ATORVASTATIN CA 40 MG TABLET (FP) PO SCH (23:39)
[2022-12-02] MEDS: MELATONIN 5 MG TABLETS PO SCH (23:42)
[2022-12-02] MEDS: THIAMINE HCL 100 MG TABLET (FP) PO SCH (23:43)
[2022-12-03] MEDS: ACETAMINOPHEN 325 MG TABLET (FP) PO PRN ×2 (06:37→21:05)
[2022-12-03] MEDS: BACLOFEN 10 MG TABLET (FP) PO SCH ×3 (06:39→21:05)
[2022-12-03] MEDS: PRENATAL VITAMINS W/ FOLIC ACID TABLET (FP) PO SCH (09:37)
[2022-12-03] MEDS: guaiFENesin 600 MG TABLET.ER (FP) PO SCH ×2 (09:37→21:05)
[2022-12-03] MEDS: amLODIPine BESYLATE 5 MG TABLET (FP) PO SCH (09:38)
[2022-12-03] MEDS: LISINOPRIL 10 MG TABLET PO SCH (09:38)
[2022-12-03] MEDS: ALBUTEROL SO4 HFA INHALER IH PRN (09:38)
[2022-12-03] MEDS: NICOTINE 14 MG/24 HOURS TOPICAL PATCH TD SCH (09:38)
[2022-12-03] MEDS: HYDROCHLOROTHIAZIDE 12.5 MG CAPSULE (FP) PO SCH (09:38)
[2022-12-03] MEDS: ATORVASTATIN CA 40 MG TABLET (FP) PO SCH (21:05)
[2022-12-03] MEDS: THIAMINE HCL 100 MG TABLET (FP) PO SCH (21:05)
[2022-12-03] MEDS: MELATONIN 5 MG TABLETS PO SCH (21:05)
[2022-12-04] MEDS: BACLOFEN 10 MG TABLET (FP) PO SCH ×3 (06:48→21:04)
[2022-12-04] MEDS: ACETAMINOPHEN 325 MG TABLET (FP) PO PRN (06:49)
[2022-12-04] MEDS: NICOTINE 14 MG/24 HOURS TOPICAL PATCH TD SCH (09:50)
[2022-12-04] MEDS: guaiFENesin 600 MG TABLET.ER (FP) PO SCH ×2 (09:50→21:04)
[2022-12-04] MEDS: PRENATAL VITAMINS W/ FOLIC ACID TABLET (FP) PO SCH (09:50)
[2022-12-04] MEDS: LISINOPRIL 10 MG TABLET PO SCH (09:50)
[2022-12-04] MEDS: amLODIPine BESYLATE 5 MG TABLET (FP) PO SCH (09:52)
[2022-12-04] MEDS: HYDROCHLOROTHIAZIDE 12.5 MG CAPSULE (FP) PO SCH (09:52)
[2022-12-04] MEDS: ALBUTEROL SO4 HFA INHALER IH PRN (09:54)
[2022-12-04] MEDS: THIAMINE HCL 100 MG TABLET (FP) PO SCH (21:04)
[2022-12-04] MEDS: ATORVASTATIN CA 40 MG TABLET (FP) PO SCH (21:04)
[2022-12-04] MEDS: MELATONIN 5 MG TABLETS PO SCH (21:04)
[2022-12-05] MEDS: ACETAMINOPHEN 325 MG TABLET (FP) PO PRN ×2 (06:59→21:05)
[2022-12-05] MEDS: BACLOFEN 10 MG TABLET (FP) PO SCH ×3 (06:59→21:03)
[2022-12-05] MEDS: amLODIPine BESYLATE 5 MG TABLET (FP) PO SCH (09:35)
[2022-12-05] MEDS: PRENATAL VITAMINS W/ FOLIC ACID TABLET (FP) PO SCH (09:35)
[2022-12-05] MEDS: guaiFENesin 600 MG TABLET.ER (FP) PO SCH ×2 (09:37→21:03)
[2022-12-05] MEDS: LISINOPRIL 10 MG TABLET PO SCH (09:38)
[2022-12-05] MEDS: HYDROCHLOROTHIAZIDE 12.5 MG CAPSULE (FP) PO SCH (09:38)
[2022-12-05] MEDS: ALBUTEROL SO4 HFA INHALER IH PRN (09:39)
[2022-12-05] MEDS: NICOTINE 14 MG/24 HOURS TOPICAL PATCH TD SCH (09:40)
[2022-12-05] MEDS: THIAMINE HCL 100 MG TABLET (FP) PO SCH (21:02)
[2022-12-05] MEDS: MELATONIN 5 MG TABLETS PO SCH (21:03)
[2022-12-05] MEDS: ATORVASTATIN CA 40 MG TABLET (FP) PO SCH (21:03)
[2022-12-06] MEDS: BACLOFEN 10 MG TABLET (FP) PO SCH ×3 (06:41→21:03)
[2022-12-06] MEDS: NICOTINE 14 MG/24 HOURS TOPICAL PATCH TD SCH (09:40)
[2022-12-06] MEDS: amLODIPine BESYLATE 5 MG TABLET (FP) PO SCH (09:40)
[2022-12-06] MEDS: PRENATAL VITAMINS W/ FOLIC ACID TABLET (FP) PO SCH (09:40)
[2022-12-06] MEDS: LISINOPRIL 10 MG TABLET PO SCH (09:40)
[2022-12-06] MEDS: HYDROCHLOROTHIAZIDE 12.5 MG CAPSULE (FP) PO SCH (09:40)
[2022-12-06] MEDS: guaiFENesin 600 MG TABLET.ER (FP) PO SCH ×2 (09:40→21:04)
[2022-12-06] MEDS: ALBUTEROL SO4 HFA INHALER IH PRN ×2 (09:41→21:04)
[2022-12-06] MEDS: ACETAMINOPHEN 325 MG TABLET (FP) PO PRN (09:44)
[2022-12-06] MEDS: ATORVASTATIN CA 40 MG TABLET (FP) PO SCH (21:03)
[2022-12-06] MEDS: THIAMINE HCL 100 MG TABLET (FP) PO SCH (21:04)
[2022-12-06] MEDS: MELATONIN 5 MG TABLETS PO SCH (21:07)
[2022-12-07] MEDS: BACLOFEN 10 MG TABLET (FP) PO SCH ×2 (06:08→14:04)
[2022-12-07 07:01] VITALS: RESP 16; TEMP 97.7
[2022-12-07 09:24] VITALS: BP 126/68; PULSE 56
[2022-12-07] MEDS: PRENATAL VITAMINS W/ FOLIC ACID TABLET (FP) PO SCH (09:43)
[2022-12-07] MEDS: guaiFENesin 600 MG TABLET.ER (FP) PO SCH (09:44)
[2022-12-07] MEDS: amLODIPine BESYLATE 5 MG TABLET (FP) PO SCH (09:44)
[2022-12-07] MEDS: LISINOPRIL 10 MG TABLET PO SCH (09:44)
[2022-12-07] MEDS: ALBUTEROL SO4 HFA INHALER IH PRN (09:45)
[2022-12-07] MEDS: HYDROCHLOROTHIAZIDE 12.5 MG CAPSULE (FP) PO SCH (09:45)
[2022-12-07] MEDS: NICOTINE 14 MG/24 HOURS TOPICAL PATCH TD SCH (09:46)
[2022-12-07 10:28] LABS: INR 1.07 (0.83-1.09); PROTHROMBIN TIME (PATIENT) 12.4 SEC (9.7-13.0)
[2022-12-07 10:29] LABS: ACTIVATED PTT 32.1 SECONDS (25.2-36.5)
== END 2022-12-07 15:30 | disposition home or self-care (01) | DRG 772 ==
LOC: YASAS 09:24 → Y5N 10:40
PROVIDERS: ADMIT Allergy & Immunology; ATTEND Psychiatry & Neurology Pain Medicine
PROC: HZ42ZZZ Group Counseling for Substance Abuse Treatment, Cognitive-Behavioral (ICD-10-PCS; principal; 2022-11-28)
DX: F14.20 Cocaine dependence, uncomplicated (principal); F12.20 Cannabis dependence, uncomplicated; F16.10 Hallucinogen abuse, uncomplicated; F17.210 Nicotine dependence, cigarettes, uncomplicated; F25.1 Schizoaffective disorder, depressive type; F31.9 Bipolar disorder, unspecified; F19.282 Other psychoactive substance dependence with psychoactive substance-induced sleep disorder; F19.24 Other psychoactive substance dependence with psychoactive substance-induced mood disorder; E78.5 Hyperlipidemia, unspecified; I10 Essential (primary) hypertension; J45.909 Unspecified asthma, uncomplicated; M54.50 Low back pain, unspecified; G89.29 Other chronic pain; R05.9 Cough, unspecified; Z59.02 Unsheltered homelessness; Z87.09 Personal history of other diseases of the respiratory system
CPT/HCPCS: 36415; 71046-TC-FY; 80053; 81003; 82140; 85027; 85610; 85730; 86780; 87389; 87635; J0475; Q0162

== ENCOUNTER 2023-05-14 13:52 | Inpatient (IN) | payer OTHER ==
[2023-05-14 15:14] VITALS: BMI 26.3
[2023-05-14] MEDS ORDERED: BENZONATATE 200 MG CAPSULE PO PRN (18:07)
[2023-05-14] MEDS ORDERED: guaiFENesin 600 MG TABLET.ER (FP) PO PRN (18:07)
[2023-05-14] MEDS ORDERED: IBUPROFEN 400 MG TABLET (FP) PO PRN (18:07)
[2023-05-14] MEDS ORDERED: LOPERAMIDE HCL 2 MG CAPSULE PO PRN (18:07)
[2023-05-14] MEDS ORDERED: BENZOCAINE/MENTHOL (CHLORASEPTIC ) LOZENGE MM PRN (18:07)
[2023-05-14] MEDS ORDERED: MAGNESIUM HYDROX 2400MG/30ML ORAL SUSPENSION 30 ML CUP PO PRN (18:07)
[2023-05-14] MEDS ORDERED: MAG HYDROX/AL HYDROX/SIMETH 30 ML UNIT-DOSE CUP PO PRN (18:07)
[2023-05-14] MEDS ORDERED: P-EPHED 60MG/TRIPROLIDI 2.5MG TABLET PO PRN (18:07)
[2023-05-14] MEDS: MELATONIN 5 MG TABLETS PO SCH (22:00)
[2023-05-14] MEDS: THIAMINE HCL 100 MG TABLET (FP) PO SCH (22:00)
[2023-05-15] MEDS: PRENATAL VITAMINS W/ FOLIC ACID TABLET (FP) PO SCH (10:08)
[2023-05-15] MEDS: amLODIPine BESYLATE 5 MG TABLET (FP) PO SCH (10:09)
[2023-05-15 11:53] LABS: POTASSIUM 3.9 mmol/L (3.5-5.1)
[2023-05-15 12:03] LABS: CALCIUM 8.1 mg/dL (8.5-10.1)
[2023-05-15 12:04] LABS: ALBUMIN 3.2 g/dl (3.4-5.0); BLOOD UREA NITROGEN 8.6 mg/dL (7-18)
[2023-05-15 12:07] LABS: CREATININE 0.9 mg/dL (0.55-1.3); HEMATOCRIT 36.9 % (35.4-49); HEMOGLOBIN 12.8 GM/dL (11.7-16.9); MCH 30.2 pg (25.7-33.7); MCHC 34.8 g/dl (32.0-35.9); MEAN CELL VOLUME 86.8 fl (80-96); PLATELET COUNT 214 10^3/uL (134-434); RBC 4.25 M/mm3 (4.00-5.60); RDW 15.7 % (11.9-15.9); WHITE BLOOD COUNT 7.4 K/mm3 (4.0-10.0)
[2023-05-15 12:09] LABS: BILIRUBIN,TOTAL 0.4 mg/dL (0.2-1); TOT PROT 6.3 g/dl (6.4-8.2)
[2023-05-15 16:07] LABS: URINE APPEARANCE CLEAR; URINE BILIRUBIN NEGATIVE (NEGATIVE); URINE COLOR YELLOW; URINE GLUCOSE (UA) NEGATIVE (NEGATIVE); URINE KETONE NEGATIVE (NEGATIVE); URINE LEUK ESTERASE NEGATIVE (NEGATIVE); URINE NITRITE NEGATIVE (NEGATIVE); URINE PROTEIN NEGATIVE (NEGATIVE); URINE UROBILINOGEN 0.2 mg/dL (0.2-1.0)
[2023-05-15] MEDS: ACETAMINOPHEN 325 MG TABLET (FP) PO PRN (22:16)
[2023-05-17] MEDS: LISINOPRIL 10 MG TABLET PO SCH (11:41)
[2023-05-17] MEDS: ATORVASTATIN CA 40 MG TABLET (FP) PO SCH (21:11)
[2023-05-18] MEDS: BACLOFEN 10 MG TABLET (FP) PO SCH (23:49)
[2023-05-25] MEDS: POLYETHYLENE GLYCOL (HEALTHYLAX) 3350 17 GM PACKET PO PRN (09:55)
[2023-05-27 07:13] VITALS: RESP 16; TEMP 97.8
[2023-05-27] MEDS: HYDROCHLOROTHIAZIDE 12.5 MG CAPSULE (FP) PO SCH (09:23)
[2023-05-27] MEDS: IBUPROFEN 600 MG TABLET (FP) PO PRN (09:23)
[2023-05-28 08:53] VITALS: BP 135/59; PULSE 60
== END 2023-05-28 09:31 | disposition home or self-care (01) | DRG 772 ==
LOC: YASAS 13:52 → Y3NR 23:03 → Y3W 05-17 13:49
PROVIDERS: ADMIT Allergy & Immunology; ATTEND Psychiatry & Neurology Pain Medicine
PROC: HZ42ZZZ Group Counseling for Substance Abuse Treatment, Cognitive-Behavioral (ICD-10-PCS; principal; 2023-05-14)
DX: F14.20 Cocaine dependence, uncomplicated (principal); F12.20 Cannabis dependence, uncomplicated; F17.210 Nicotine dependence, cigarettes, uncomplicated; F31.9 Bipolar disorder, unspecified; F20.9 Schizophrenia, unspecified; F19.282 Other psychoactive substance dependence with psychoactive substance-induced sleep disorder; E78.2 Mixed hyperlipidemia; I10 Essential (primary) hypertension; M54.50 Low back pain, unspecified; G89.29 Other chronic pain; Z59.00 Homelessness unspecified
CPT/HCPCS: 36415; 80053; 80305; 81003; 85027; 86780; 87635; 93005; 93010; J0475

== ENCOUNTER 2024-02-25 21:17 | Inpatient (IN) | payer OTHER ==
[2024-02-25 21:50] VITALS: BMI 23.8
[2024-02-25] MEDS ORDERED: P-EPHED 60MG/TRIPROLIDI 2.5MG TABLET PO PRN (22:09)
[2024-02-25] MEDS ORDERED: MAG HYDROX/AL HYDROX/SIMETH 30 ML UNIT-DOSE CUP PO PRN (22:09)
[2024-02-25] MEDS ORDERED: LOPERAMIDE HCL 2 MG CAPSULE PO PRN (22:09)
[2024-02-25] MEDS ORDERED: NICOTINE POLACRILEX 2 MG LOZENGE BC PRN (22:09)
[2024-02-25] MEDS ORDERED: hydrOXYzine PAMOATE 25 MG CAPSULE (FP) PO PRN (22:09)
[2024-02-25] MEDS ORDERED: NICOTINE POLACRILEX 2 MG GUM BUC PRN (22:09)
[2024-02-25] MEDS ORDERED: BENZONATATE 200 MG CAPSULE PO PRN (22:09)
[2024-02-25] MEDS ORDERED: guaiFENesin 600 MG TABLET.ER (FP) PO PRN (22:09)
[2024-02-25] MEDS ORDERED: NALOXONE (NARCAN) HCL 4 MG/0.1 ML SPRAY NS PRN (22:09)
[2024-02-25] MEDS: ATORVASTATIN CA 40 MG TABLET (FP) PO SCH (23:19)
[2024-02-25] MEDS: MELATONIN 5 MG TABLETS PO SCH (23:19)
[2024-02-25] MEDS ORDERED: MELATONIN 5 MG TABLETS ONE (23:19)
[2024-02-26] MEDS: PRENATAL VITAMINS W/ FOLIC ACID TABLET (FP) PO SCH (09:48)
[2024-02-26] MEDS: amLODIPine BESYLATE 5 MG TABLET (FP) PO SCH (09:48)
[2024-02-26] MEDS: ALBUTEROL SO4 HFA INHALER IH PRN (09:49)
[2024-02-26] MEDS ORDERED: PNEUMOC 20-VAL CONJ-DIP CRM/PF 0.5 ML SYRINGE IM ONE (12:00)
[2024-02-26 12:29] LABS: POTASSIUM 3.4 mmol/L (3.5-5.1)
[2024-02-26 12:32] LABS: CALCIUM 9.1 mg/dL (8.5-10.1); HEMOGLOBIN 13.6 GM/dL (11.7-16.9); MCH 29.4 pg (25.7-33.7); MCHC 33.1 g/dl (32.0-35.9); MEAN CELL VOLUME 88.7 fl (80-96); MEAN PLT VOLUME 8.4 fl (7.5-11.1); PLATELET COUNT 206 10^3/uL (134-434); RBC 4.62 M/mm3 (4.00-5.60); RDW 15.3 % (11.9-15.9); WHITE BLOOD COUNT 8.9 K/mm3 (4.0-10.0)
[2024-02-26 12:34] LABS: ALBUMIN 3.8 g/dl (3.4-5.0); BLOOD UREA NITROGEN 15.2 mg/dL (7-18)
[2024-02-26 12:37] LABS: BILIRUBIN,TOTAL 0.4 mg/dL (0.2-1); CREATININE 1.1 mg/dL (0.55-1.3); TOT PROT 7.4 g/dl (6.4-8.2)
[2024-02-26 19:25] LABS: PH,URINE 5.5 (5.0-8.0); URINE APPEARANCE TURBID; URINE BILIRUBIN NEGATIVE (NEGATIVE); URINE COLOR YELLOW; URINE GLUCOSE (UA) NEGATIVE (NEGATIVE); URINE KETONE NEGATIVE (NEGATIVE); URINE LEUK ESTERASE NEGATIVE (NEGATIVE); URINE NITRITE NEGATIVE (NEGATIVE); URINE PROTEIN NEGATIVE (NEGATIVE); URINE UROBILINOGEN 0.2 mg/dL (0.2-1.0)
[2024-02-26] MEDS: THIAMINE 100 MG TABLET PO SCH (21:50)
[2024-02-26] MEDS: ACETAMINOPHEN 325 MG TABLET (FP) PO PRN (21:50)
[2024-02-28] MEDS: TUBERCULIN PPD 5 TU/0.1ML VIAL ID ONE (16:50)
[2024-02-28] MEDS: IBUPROFEN 600 MG TABLET (FP) PO PRN (19:13)
[2024-02-29] MEDS: MAGNESIUM HYDROX 2400MG/30ML ORAL SUSPENSION 30 ML CUP PO PRN (13:07)
[2024-02-29] MEDS: POLYETHYLENE GLYCOL (HEALTHYLAX) 3350 17 GM PACKET PO PRN (21:24)
[2024-03-02] MEDS: BACLOFEN 10 MG TABLET (FP) PO SCH (13:54)
[2024-03-02] MEDS: METHYL SALICYLATE/MENTHOL 30 GM TUBE TP SCH (13:54)
[2024-03-04] MEDS: IBUPROFEN 400 MG TABLET (FP) PO PRN (21:28)
[2024-03-10] MEDS: DOCUSATE SODIUM 100 MG CAPSULE (FP) PO PRN (12:53)
[2024-03-11] MEDS: BISACODYL 5 MG TABLET.DR (FP) PO PRN (17:46)
[2024-03-15] MEDS ORDERED: amLODIPine BESYLATE 5 MG TABLET (FP) PO SCH (12:59)
[2024-03-16] MEDS: DOCUSATE SODIUM 100 MG CAPSULE (FP) PO PRN (05:46)
[2024-03-16] MEDS: amLODIPine BESYLATE 2.5 MG TABLET (FP) PO SCH (09:58)
[2024-03-18] MEDS: BENZOCAINE/MENTHOL (CHLORASEPTIC ) LOZENGE MM PRN (09:43)
[2024-03-23 06:48] VITALS: RESP 16
[2024-03-24 05:43] VITALS: PULSE 60; TEMP 97.7
[2024-03-24] MEDS: NALOXONE (NYS OPIOID OVERDOSE PROGRAM) 4 MG/0.1 ML SPRAY NS SCH (08:52)
[2024-03-24 09:23] VITALS: BP 142/67
== END 2024-03-24 09:16 | disposition home or self-care (01) | DRG 772 ==
LOC: YASAS 21:17 → Y3NR 23:18 → Y3W 02-28 10:33
PROVIDERS: ADMIT Allergy & Immunology; ATTEND Psychiatry & Neurology Pain Medicine
PROC: HZ42ZZZ Group Counseling for Substance Abuse Treatment, Cognitive-Behavioral (ICD-10-PCS; principal; 2024-02-25)
DX: F14.20 Cocaine dependence, uncomplicated (principal); F12.20 Cannabis dependence, uncomplicated; F17.210 Nicotine dependence, cigarettes, uncomplicated; F25.9 Schizoaffective disorder, unspecified; F31.9 Bipolar disorder, unspecified; F19.282 Other psychoactive substance dependence with psychoactive substance-induced sleep disorder; E78.5 Hyperlipidemia, unspecified; I10 Essential (primary) hypertension; J45.909 Unspecified asthma, uncomplicated; K59.00 Constipation, unspecified; M54.2 Cervicalgia; M54.50 Low back pain, unspecified; G89.29 Other chronic pain
CPT/HCPCS: 36415; 80053; 80305; 80307; 81003; 82962; 84132; 85027; 86780; 87811; J0475

== ENCOUNTER 2024-07-11 08:24 | Inpatient (IN) | payer OTHER ==
[2024-07-11 08:57] VITALS: BMI 23.5
[2024-07-11] MEDS ORDERED: NALOXONE (NARCAN) HCL 4 MG/0.1 ML SPRAY NS PRN (09:22)
[2024-07-11] MEDS ORDERED: MAGNESIUM HYDROX 2400MG/30ML ORAL SUSPENSION 30 ML CUP PO PRN (09:22)
[2024-07-11] MEDS ORDERED: IBUPROFEN 600 MG TABLET (FP) PO PRN (09:22)
[2024-07-11] MEDS ORDERED: LOPERAMIDE HCL 2 MG CAPSULE PO PRN (09:22)
[2024-07-11] MEDS ORDERED: BENZOCAINE/MENTHOL (CHLORASEPTIC ) LOZENGE MM PRN (09:22)
[2024-07-11] MEDS ORDERED: guaiFENesin 600 MG TABLET.ER (FP) PO PRN (09:22)
[2024-07-11] MEDS ORDERED: POLYETHYLENE GLYCOL (HEALTHYLAX) 3350 17 GM PACKET PO PRN (09:22)
[2024-07-11] MEDS ORDERED: NICOTINE POLACRILEX 2 MG GUM BUC PRN (09:22)
[2024-07-11] MEDS ORDERED: IBUPROFEN 400 MG TABLET (FP) PO PRN (09:22)
[2024-07-11] MEDS ORDERED: MAG HYDROX/AL HYDROX/SIMETH 30 ML UNIT-DOSE CUP PO PRN (09:22)
[2024-07-11] MEDS ORDERED: NICOTINE POLACRILEX 2 MG LOZENGE BC PRN (09:22)
[2024-07-11] MEDS ORDERED: BENZONATATE 200 MG CAPSULE PO PRN (09:22)
[2024-07-11] MEDS ORDERED: PRENATAL VITAMINS W/ FOLIC ACID TABLET (FP) PO ONE (09:51)
[2024-07-11] MEDS: PRENATAL VITAMINS W/ FOLIC ACID TABLET (FP) PO SCH (09:51)
[2024-07-11] MEDS ORDERED: DOCUSATE SODIUM 100 MG CAPSULE (FP) PO PRN (11:08)
[2024-07-11] MEDS ORDERED: BISACODYL 5 MG TABLET.DR (FP) PO PRN (11:08)
[2024-07-11] MEDS ORDERED: ALBUTEROL SO4 HFA INHALER IH PRN (11:08)
[2024-07-11] MEDS: THIAMINE 100 MG TABLET PO SCH (22:45)
[2024-07-11] MEDS: ATORVASTATIN CA 40 MG TABLET (FP) PO SCH (22:45)
[2024-07-11] MEDS: MELATONIN 5 MG TABLETS PO SCH (22:45)
[2024-07-12 00:32] LABS: URINE APPEARANCE CLEAR; URINE BILIRUBIN NEGATIVE (NEGATIVE); URINE COLOR YELLOW; URINE GLUCOSE (UA) NEGATIVE (NEGATIVE); URINE KETONE NEGATIVE (NEGATIVE); URINE LEUK ESTERASE NEGATIVE (NEGATIVE); URINE NITRITE NEGATIVE (NEGATIVE); URINE PROTEIN NEGATIVE (NEGATIVE); URINE UROBILINOGEN 0.2 mg/dL (0.2-1.0)
[2024-07-12] MEDS: amLODIPine BESYLATE 2.5 MG TABLET (FP) PO SCH (10:15)
[2024-07-12 11:46] LABS: HEMATOCRIT 38.2 % (40.1-51.0); HEMOGLOBIN 12.7 g/dL (13.7-17.5); MCHC 33.2 g/dl (32.3-36.5); MEAN CELL VOLUME 87.8 fl (79.0-92.2); MEAN PLT VOLUME 10.2 fl (9.4-12.4); PLATELET COUNT 208 x10^3/uL (163-337); RDW 14.3 % (12.2-16.1)
[2024-07-12 11:50] LABS: POTASSIUM 3.8 mmol/L (3.5-5.1)
[2024-07-12 12:26] LABS: ALBUMIN 3.2 g/dl (3.4-5.0); BLOOD UREA NITROGEN 11.1 mg/dL (7-18); CALCIUM 9.2 mg/dL (8.5-10.1)
[2024-07-12 12:31] LABS: BILIRUBIN,TOTAL 0.4 mg/dL (0.2-1); TOT PROT 6.6 g/dl (6.4-8.2)
[2024-07-13] MEDS: LISINOPRIL 10 MG TABLET PO SCH (09:33)
[2024-07-13] MEDS: amLODIPine BESYLATE 2.5 MG TABLET (FP) PO SCH (10:43)
[2024-07-13] MEDS: ACETAMINOPHEN 325 MG TABLET (FP) PO PRN (18:11)
[2024-07-13 19:09] VITALS: BP 158/70; PULSE 60; RESP 17; TEMP 97.9
== END 2024-07-13 19:22 | disposition left against medical advice (07) | DRG 770 ==
LOC: YASAS 08:24 → Y3NR 09:38 → Y3E 07-12 11:42
PROVIDERS: ADMIT Psychiatry & Neurology Pain Medicine; ATTEND Psychiatry & Neurology Pain Medicine
PROC: HZ42ZZZ Group Counseling for Substance Abuse Treatment, Cognitive-Behavioral (ICD-10-PCS; principal; 2024-07-11)
DX: F14.20 Cocaine dependence, uncomplicated (principal); F12.20 Cannabis dependence, uncomplicated; F17.210 Nicotine dependence, cigarettes, uncomplicated; F25.9 Schizoaffective disorder, unspecified; F31.9 Bipolar disorder, unspecified; E78.5 Hyperlipidemia, unspecified; I10 Essential (primary) hypertension; J45.909 Unspecified asthma, uncomplicated; M54.50 Low back pain, unspecified; G89.29 Other chronic pain
CPT/HCPCS: 36415; 80053; 80305; 80307; 81003; 85027; 86780; 87811; 93005; 93010